=== PATIENT | male | born 1955 | race Caucasian/White ===

== ENCOUNTER → 2017-10-26 09:13 | Outpatient (CLI) | payer OTHER, SELFPAY ==
[2017-10-26 09:24] LABS: Bacteria Urine None Seen; RBC Urine None Seen (0-5/HPF); WBC Urine None Seen (0-5/HPF)
[2017-10-26 10:12] LABS: Appearance Urine UA CLEAR; Bilirubin Urine UA NEGATIVE (NEGATIVE); Color Urine UA YELLOW; Glucose Urine UA NEGATIVE (Normal); Ketones Urine UA NEGATIVE (NEGATIVE); Leukocyte Esterase Urine UA NEGATIVE (NEGATIVE); Nitrite Urine UA Negative (Negative); Occult Blood Urine UA NEGATIVE (Negative); Protein Urine UA NEGATIVE (Negative); Urobilinogen Urine UA 0.2 E.U./dL (0.2)
[2017-10-26 10:25] LABS: Culture Indicated Urine Cult Not Indicated; Urine Comments Microscopic Normal
[2017-10-26 10:41] LABS: Alanine Aminotransferase 35 IU/L (21-72); Albumin 4.5 g/dL (3.5-5.0); Albumin Globulin Ratio 1.7 (1.0-2.8); Alkaline Phosphatase 67 U/L (38-126); Aspartate Aminotransferase 34 IU/L (17-59); BUN Creatinine Ratio 16.4 (6-22); Bilirubin Total 1.4 mg/dL (0.2-1.3); Blood Urea Nitrogen 18 mg/dL (9-20); Calcium 9.2 mg/dL (8.4-10.2); Carbon Dioxide 30 mmol/L (22-32); Chloride 104 mmol/L (98-107); Cholesterol 81 mg/dL (140-199); Estimated Glomerular Filt Rate > 60.0 mL/min (>60); Globulin 2.6 g/dL (1.7-4.1); Glucose 117 mg/dL (80-110); HDL Cholesterol 23 mg/dL (40-60); HEMOLYSIS < 15 (0-50); LDL Cholesterol Calculated 35 mg/dL (<100); Lithium 0.7 mmol/L (0.6-1.2); Potassium 4.7 mmol/L (3.4-5.1); Sodium 142 mmol/L (137-145); Total Protein 7.1 g/dL (6.3-8.2); Triglycerides 116 mg/dL (35-150); Uric Acid 5.4 mg/dL (3.5-8.5)
[2017-10-26 11:06] LABS: TSH w/ Reflex to FT4 0.73 uIU/mL (0.47-4.68)
== END ==
PROVIDERS: PCP Internal Medicine Cardiovascular Disease; Visit Provider Internal Medicine
DX: E03.9 Hypothyroidism, unspecified (principal); E11.9 Type 2 diabetes mellitus without complications; E78.5 Hyperlipidemia, unspecified; F31.9 Bipolar disorder, unspecified; I10 Essential (primary) hypertension; M10.9 Gout, unspecified; R79.89 Other specified abnormal findings of blood chemistry
CPT/HCPCS: 36415; 80053; 80061; 80178; 81001; 83036; 84443; 84550

== ENCOUNTER → 2018-05-28 14:05 | Outpatient (CLI) | payer SELFPAY ==
[2018-05-28 16:36] LABS: Urine Drug scr, USCG NIDA See Separate Report
== END ==
DX: Z01.89 Encounter for other specified special examinations (principal)
CPT/HCPCS: 81099

== ENCOUNTER → 2018-08-24 13:35 | Outpatient (CLI) | payer OTHER, SELFPAY ==
--- NOTE | 2018-08-24 14:50 | PM.TREADMILL ---
Cardiac Stress Test Report Referral & Results Date Patient Seen: 08/24/18 Requesting provider: Marques Campbell Indication: Coronary disease Rest ECG: Unremarkable Procedure Note: Today following both written and verbal informed consent, the patient was exercised according to a standard Kristopher protocol. The patient exercised for a total of 12 minutes 4 seconds achieving a maximum heart rate of 172. Patient's maximum systolic blood pressure was 220. This was an estimated 12.8 MET's. There are no ST-T segment changes identified Normal heart rate response but slightly hypertensive in response to exercise (patient did hold his metoprolol prior to this test) Functional aerobic impairment way way off the scale estimate his functional capacity to be equal that of an active 40-year-old Impression: No evidence of ischemia Amazing exercise capacity Slightly hypertensive response to exercise while temporarily off metoprolol, clinical correlation suggested Please note: Actual ECG tracings can be found in the PACS system.
== END ==
PROVIDERS: Visit Provider Internal Medicine
DX: I25.10 Atherosclerotic heart disease of native coronary artery without angina pectoris (principal)
CPT/HCPCS: 93016; 93017; 93018

== ENCOUNTER → 2019-07-12 11:30 | Outpatient (CLI) | payer MEDICARE, SELFPAY ==
[2019-07-12 14:04] LABS: Hemoglobin A1C% w Est Avg Glu 5.1 % (4.0-6.0)
[2019-07-12 14:17] LABS: Lithium 1.1 mmol/L (0.6-1.2)
[2019-07-12 14:22] LABS: Alanine Aminotransferase 29 IU/L (<50); Albumin Globulin Ratio 1.7 (1.0-2.8); Alkaline Phosphatase 87 U/L (38-126); Aspartate Aminotransferase 38 IU/L (17-59); Bilirubin Total 0.9 mg/dL (0.2-1.3); Blood Urea Nitrogen 21 mg/dL (9-20); Calcium 10.2 mg/dL (8.4-10.2); Carbon Dioxide 28 mmol/L (22-32); Chloride 103 mmol/L (98-107); Estimated Glomerular Filt Rate > 60.0 mL/min (>60); Globulin 2.9 g/dL (1.7-4.1); Glucose 126 mg/dL (80-110); HEMOLYSIS < 15 (0-50); Potassium 4.8 mmol/L (3.4-5.1); Sodium 139 mmol/L (137-145); Total Protein 7.9 g/dL (6.3-8.2)
== END ==
PROVIDERS: PCP Internal Medicine; Referring Provider Internal Medicine; Visit Provider Internal Medicine
DX: R73.9 Hyperglycemia, unspecified (principal); F31.9 Bipolar disorder, unspecified; E78.5 Hyperlipidemia, unspecified
CPT/HCPCS: 36415; 80053; 80178; 83036

== ENCOUNTER → 2019-12-19 09:12 | Outpatient (CLI) | payer MEDICARE, SELFPAY ==
[2019-12-19 10:29] LABS: Add Manual Diff / Slide Review NO; Basophils Absolute Auto 0 /uL (0-100); Basophils Percent Auto 0.7 % (0-2); Eosinophils Absolute Auto 100 /uL (0-450); Eosinophils Percent Auto 1.9 % (2-4); Hemoglobin 14.7 g/dL (13.5-17.5); Lymphocytes Absolute Auto 1900 /uL (1100-4500); Lymphocytes Percent Auto 37.7 % (25-40); Mean Corpuscular Hemoglobin 33.7 PG (26-34); Mean Corpuscular Volume 96.3 fL (80-100); Monocytes Absolute Auto 200 /uL (0-900); Monocytes Percent Auto 4.6 % (3-14); Neutrophils Absolute Auto 2700 /uL (1500-7000); Neutrophils Percent Auto 55.1 % (50-75); Platelet Count 87 X10^3/uL (150-400); Red Blood Cell Count 4.36 X10^6/uL (4.5-5.9); Red Cell Distribution Width 13.6 % (11.6-14.8); White Blood Cell Count 4.9 X10^3/uL (4.5-11.0)
[2019-12-19 11:01] LABS: Alanine Aminotransferase 32 IU/L (<50); Albumin 4.5 g/dL (3.5-5.0); Albumin Globulin Ratio 1.7 (1.0-2.8); Alkaline Phosphatase 66 U/L (38-126); Aspartate Aminotransferase 41 IU/L (17-59); BUN Creatinine Ratio 14.4 (6-22); Bilirubin Total 1.1 mg/dL (0.2-1.3); Blood Urea Nitrogen 14 mg/dL (9-20); Calcium 9.4 mg/dL (8.4-10.2); Carbon Dioxide 29 mmol/L (22-32); Chloride 105 mmol/L (98-107); Estimated Glomerular Filt Rate > 60.0 mL/min (>60); Globulin 2.6 g/dL (1.7-4.1); Glucose 128 mg/dL (80-110); HEMOLYSIS < 15 (0-50); Potassium 4.5 mmol/L (3.4-5.1); Sodium 139 mmol/L (137-145); Total Protein 7.1 g/dL (6.3-8.2); Uric Acid 5.7 mg/dL (3.5-8.5)
[2019-12-19 11:41] LABS: Lithium 1.6 mmol/L (0.6-1.2)
== END ==
PROVIDERS: PCP Internal Medicine; Referring Provider Internal Medicine; Visit Provider Internal Medicine
DX: I25.10 Atherosclerotic heart disease of native coronary artery without angina pectoris (principal); E78.2 Mixed hyperlipidemia; I10 Essential (primary) hypertension
CPT/HCPCS: 36415; 80053; 80178; 84550; 85025

== ENCOUNTER → 2020-01-21 14:43 | Outpatient (CLI) | payer MEDICARE, SELFPAY ==
[2020-01-21 16:22] LABS: COVID19 -Nasal RAPID Negative (Negative)
== END ==
PROVIDERS: PCP Internal Medicine; Visit Provider Nurse Practitioner
DX: Z11.59 Encounter for screening for other viral diseases (principal)
CPT/HCPCS: 87635

== ENCOUNTER → 2020-02-15 10:11 | Outpatient (CLI) | payer MEDICARE, SELFPAY ==
[2020-02-15 11:00] LABS: Add Manual Diff / Slide Review NO; Basophils Absolute Auto 0 /uL (0-100); Basophils Percent Auto 0.6 % (0-2); Eosinophils Absolute Auto 100 /uL (0-450); Eosinophils Percent Auto 2.1 % (2-4); Hematocrit 43.7 % (41-53); Hemoglobin 15.2 g/dL (13.5-17.5); Lymphocytes Absolute Auto 1900 /uL (1100-4500); Mean Corpuscular HGB Conc 34.9 % (30-36); Mean Corpuscular Hemoglobin 32.7 PG (26-34); Mean Corpuscular Volume 93.6 fL (80-100); Monocytes Absolute Auto 200 /uL (0-900); Monocytes Percent Auto 4.2 % (3-14); Neutrophils Absolute Auto 2700 /uL (1500-7000); Neutrophils Percent Auto 55.1 % (50-75); Platelet Count 79 X10^3/uL (150-400); Red Blood Cell Count 4.66 X10^6/uL (4.5-5.9); Red Cell Distribution Width 13.5 % (11.6-14.8); White Blood Cell Count 4.9 X10^3/uL (4.5-11.0)
[2020-02-15 11:17] LABS: Alanine Aminotransferase 27 IU/L (<50); Albumin 4.4 g/dL (3.5-5.0); Albumin Globulin Ratio 1.6 (1.0-2.8); Alkaline Phosphatase 69 U/L (38-126); Aspartate Aminotransferase 27 IU/L (17-59); BUN Creatinine Ratio 12.5 (6-22); Bilirubin Total 0.8 mg/dL (0.2-1.3); Blood Urea Nitrogen 12 mg/dL (9-20); Calcium 9.4 mg/dL (8.4-10.2); Carbon Dioxide 27 mmol/L (22-32); Chloride 106 mmol/L (98-107); Cholesterol 109 mg/dL (140-199); Estimated Glomerular Filt Rate > 60.0 mL/min (>60); Globulin 2.7 g/dL (1.7-4.1); Glucose 139 mg/dL (80-110); HDL Cholesterol 28 mg/dL (40-60); HEMOLYSIS < 15 (0-50); LDL Cholesterol Calculated 50 mg/dL (<100); Potassium 4.3 mmol/L (3.4-5.1); Sodium 137 mmol/L (137-145); Total Protein 7.1 g/dL (6.3-8.2); Triglycerides 157 mg/dL (35-150)
[2020-02-15 11:23] LABS: Lithium 0.6 mmol/L (0.6-1.2)
[2020-02-15 11:55] LABS: TSH w/ Reflex to FT4 1.74 uIU/mL (0.47-4.68)
== END ==
PROVIDERS: PCP Internal Medicine; Referring Provider Internal Medicine; Visit Provider Internal Medicine
DX: I10 Essential (primary) hypertension (principal); E03.9 Hypothyroidism, unspecified; F31.9 Bipolar disorder, unspecified; T56.891A Toxic effect of other metals, accidental (unintentional), initial encounter
CPT/HCPCS: 36415; 80053; 80061; 80178; 84443; 85025

== ENCOUNTER → 2020-03-09 14:21 | Outpatient (CLI) | payer MEDICARE, SELFPAY ==
[2020-03-09] MEDS: COVID-19 VACC #1, MRNA(MOD) 100 MCG/0.5 ML VIAL IM (14:38)
== END ==
PROVIDERS: PCP Internal Medicine; Visit Provider Internal Medicine
DX: Z23 Encounter for immunization (principal)
CPT/HCPCS: 0011A; 91301

== ENCOUNTER → 2020-04-12 09:01 | Outpatient (CLI) | payer MEDICARE, SELFPAY ==
[2020-04-12] MEDS: COVID-19 VACC #2, MRNA(MOD) 100 MCG/0.5 ML VIAL IM (09:07)
== END ==
PROVIDERS: PCP Internal Medicine; Visit Provider Internal Medicine
DX: Z23 Encounter for immunization (principal)
CPT/HCPCS: 0012A; 91301

== ENCOUNTER → 2022-03-03 11:14 | Outpatient (CLI) | payer MEDICARE, SELFPAY ==
[2022-03-03 12:40] LABS: Alanine Aminotransferase 37 IU/L (<50); Albumin 4.7 g/dL (3.5-5.0); Albumin Globulin Ratio 1.7 (1.0-2.8); Alkaline Phosphatase 96 U/L (38-126); Aspartate Aminotransferase 32 IU/L (17-59); BUN Creatinine Ratio 21.3 (6-22); Bilirubin Total 0.9 mg/dL (0.2-1.3); Blood Urea Nitrogen 23 mg/dL (9-20); Carbon Dioxide 23 mmol/L (22-32); Chloride 102 mmol/L (98-107); Cholesterol 103 mg/dL (140-199); Estimated Glomerular Filt Rate > 60 mL/min (>60); Globulin 2.7 g/dL (1.7-4.1); Glucose 217 mg/dL (80-110); HDL Cholesterol 29 mg/dL (40-60); HEMOLYSIS < 15 (0-50); LDL Cholesterol Calculated 38 mg/dL (<100); Potassium 4.3 mmol/L (3.4-5.1); Sodium 137 mmol/L (137-145); Total Protein 7.4 g/dL (6.3-8.2); Triglycerides 178 mg/dL (35-150); Uric Acid 5.8 mg/dL (3.5-8.5)
[2022-03-03 13:12] LABS: Free T4, Direct Thyroxine 0.91 ng/dL (0.78-2.19)
[2022-03-03 13:25] LABS: Thyroid Stimulating Hormone 1.05 uIU/mL (0.47-4.68)
[2022-03-03 13:36] LABS: Lithium 1.6 mmol/L (0.6-1.2)
== END ==
PROVIDERS: PCP Family Medicine; Referring Provider Nurse Practitioner; Visit Provider Nurse Practitioner
DX: E78.5 Hyperlipidemia, unspecified (principal); I10 Essential (primary) hypertension; Z79.899 Other long term (current) drug therapy; M10.9 Gout, unspecified; E03.9 Hypothyroidism, unspecified
CPT/HCPCS: 36415; 80053; 80061; 80178; 84439; 84443; 84550

== ENCOUNTER → 2022-03-20 10:47 | Outpatient (CLI) | payer MEDICARE, SELFPAY ==
[2022-03-20 11:52] LABS: Add Manual Diff / Slide Review NO; Basophils Absolute Auto 0 /uL (0-100); Basophils Percent Auto 0.6 % (0-2); Eosinophils Absolute Auto 100 /uL (0-450); Eosinophils Percent Auto 1.5 % (2-4); Hematocrit 41.7 % (41-53); Hemoglobin 14.7 g/dL (13.5-17.5); Lymphocytes Absolute Auto 1800 /uL (1100-4500); Lymphocytes Percent Auto 36.6 % (25-40); Mean Corpuscular HGB Conc 35.1 % (30-36); Mean Corpuscular Hemoglobin 32.4 PG (26-34); Mean Corpuscular Volume 92.1 fL (80-100); Monocytes Absolute Auto 300 /uL (0-900); Monocytes Percent Auto 5.4 % (3-14); Neutrophils Absolute Auto 2700 /uL (1500-7000); Neutrophils Percent Auto 55.9 % (50-75); Platelet Count 69 X10^3/uL (150-400); Red Blood Cell Count 4.53 X10^6/uL (4.5-5.9); Red Cell Distribution Width 14.2 % (11.6-14.8); White Blood Cell Count 4.8 X10^3/uL (4.5-11.0)
[2022-03-20 11:59] LABS: Hemoglobin A1C% w Est Avg Glu 6.4 % (4.0-6.0)
[2022-03-20 12:04] LABS: Lithium 0.3 mmol/L (0.6-1.2)
[2022-03-20 12:22] LABS: Vitamin D 25 Hydroxy (D3) 34.7 ng/mL (30.0-100.0)
[2022-03-20 12:29] LABS: Creatinine Urine Random 123.8 mg/dL
[2022-03-20 13:11] LABS: Vitamin B12 371 pg/mL (239-931)
== END ==
PROVIDERS: PCP Family Medicine; Referring Provider Family Medicine; Visit Provider Family Medicine
DX: I10 Essential (primary) hypertension (principal); R73.09 Other abnormal glucose; Z79.899 Other long term (current) drug therapy; D69.6 Thrombocytopenia, unspecified; F31.9 Bipolar disorder, unspecified
CPT/HCPCS: 36415; 80178; 82043; 82306; 82570; 82607; 82746; 83036; 85025

== ENCOUNTER → 2022-11-20 09:11 | Outpatient (CLI) | payer MEDICARE, SELFPAY ==
[2022-11-20 09:52] LABS: Add Manual Diff / Slide Review NO; Basophils Absolute Auto 0 /uL (0-100); Basophils Percent Auto 0.8 % (0-2); Eosinophils Absolute Auto 100 /uL (0-450); Lymphocytes Absolute Auto 1900 /uL (1100-4500); Lymphocytes Percent Auto 47.1 % (25-40); Mean Corpuscular HGB Conc 35.9 % (30-36); Mean Corpuscular Hemoglobin 33.3 PG (26-34); Mean Corpuscular Volume 92.6 fL (80-100); Monocytes Absolute Auto 200 /uL (0-900); Neutrophils Absolute Auto 1800 /uL (1500-7000); Neutrophils Percent Auto 46.1 % (50-75); Platelet Count 72 X10^3/uL (150-400); Red Blood Cell Count 4.21 X10^6/uL (4.5-5.9); Red Cell Distribution Width 13.7 % (11.6-14.8)
[2022-11-20 10:01] LABS: Hemoglobin A1C% w Est Avg Glu 5.7 % (4.0-6.0)
[2022-11-20 10:15] LABS: Alanine Aminotransferase 41 IU/L (<50); Albumin 4.5 g/dL (3.5-5.0); Alkaline Phosphatase 73 U/L (38-126); Aspartate Aminotransferase 35 IU/L (17-59); Bilirubin Total 1.3 mg/dL (0.2-1.3); Blood Urea Nitrogen 20 mg/dL (9-20); Calcium 9.4 mg/dL (8.4-10.2); Carbon Dioxide 23 mmol/L (22-32); Chloride 106 mmol/L (98-107); Cholesterol 95 mg/dL (140-199); Estimated Glomerular Filt Rate > 60 mL/min (>60); Globulin 2.2 g/dL (1.7-4.1); Glucose 142 mg/dL (80-110); HDL Cholesterol 30 mg/dL (40-60); HEMOLYSIS < 15 (0-50); LDL Cholesterol Calculated 42 mg/dL (<100); Potassium 4.7 mmol/L (3.4-5.1); Sodium 137 mmol/L (137-145); Total Protein 6.7 g/dL (6.3-8.2); Triglycerides 115 mg/dL (35-150); Uric Acid 5.3 mg/dL (3.5-8.5)
[2022-11-20 10:16] LABS: Lithium 0.7 mmol/L (0.6-1.2)
[2022-11-20 10:45] LABS: TSH w/ Reflex to FT4 0.77 uIU/mL (0.47-4.68)
[2022-11-20 11:07] LABS: Hep C Virus Ab w/Reflex Quant NEGATIVE s/c (NEGATIVE)
== END ==
PROVIDERS: PCP Family Medicine; Referring Provider Nurse Practitioner Family; Visit Provider Nurse Practitioner Family
DX: D69.6 Thrombocytopenia, unspecified (principal); R73.9 Hyperglycemia, unspecified; E78.5 Hyperlipidemia, unspecified; Z51.81 Encounter for therapeutic drug level monitoring; M10.09 Idiopathic gout, multiple sites; E03.9 Hypothyroidism, unspecified
CPT/HCPCS: 36415; 80053; 80061; 80178; 83036; 84443; 84550; 85025; 86803

== ENCOUNTER → 2023-03-09 07:55 | Outpatient (CLI) | payer MEDICARE, SELFPAY ==
--- NOTE | 2023-03-09 08:21 | DI.ECHO.S_ITS ---
[facility] +---------+ : : [address] : : : : [id number] : : : : Phone: [phone]+ Echocardiogram Report + + :Name: ISHMAEL ROBISON Study Date: 03/09/2023 Height: 70 in : :[facility] ReadingLocation: Weight: 235 lb : : Gender: Male BSA: 2.2 m2 : :: 1955 Age: 67 yrs BP: 164/83 mmHg: :Reason For Study: Murmur : :Ordering Physician: Karina : :Lorna Performed By: Mian Phillips : :Referring: KARINA THOMAS W : + + Interpretation Summary Normal left ventricle size with ejection fraction 60-65%. No significant valvular abnormality. Procedure: A two-dimensional transthoracic echocardiogram with color flow and Doppler was performed. The study quality was technically adequate. Comparison is made with the echocardiogram of 01/23/2011. The patient was in normal sinus rhythm during the exam. The heart rate ranged between 44-53 bpm during the study. Left Ventricle: The left ventricle is normal in size and wall thickness. The ejection fraction is estimated to be 60-65%. There are no focal wall motion abnormalities. Right Ventricle: The right ventricle is normal in size and function. Atria: The left atrial size is normal. The right atrium is normal in size. Mitral Valve: The mitral valve is normal in structure and function. There is no mitral valve stenosis. There is trace mitral regurgitation. Aortic Valve: The aortic valve is trileaflet. There is no aortic valve stenosis. No aortic regurgitation is present. Tricuspid Valve: The tricuspid valve is normal in structure and function. There is no tricuspid stenosis. There is trace tricuspid regurgitation. The right ventricular systolic pressure is estimated to be at least 33 mmHg based on an estimated right atrial pressure of 3 mm Hg. Pulmonic Valve: The pulmonic valve is normal in structure and function. There is no pulmonic valvular stenosis. There is no pulmonic valvular regurgitation. Great Vessels: The aortic root is normal size. The dimensions of the ascending aorta are normal. The inferior vena cava appeared normal. Pericardium/ Pleura There is no pericardial effusion. There is no pleural effusion. MMode/2D Measurements & Calculations LVIDd: 5.4 cm LVOT diam: 2.2 cm LVIDs: 3.4 cm Ao root diam: 3.1 cm FS: 37.2 % asc Aorta Diam: 3.2 cm IVSd: 1.2 cm Ao Arch Diam (Prox Trans): 3.3 cm LVPWd: 1.0 cm LV taylor. diameter/BSA (cm/m^2): 2.4 LV sys. diameter/BSA (cm/m^2): 1.5 LA A2 area: 22.4 cm2 RA long axis: 5.4 cm LA A4 area: 30.2 cm2 RA area: 21.3 cm2 LA length (vol): 6.7 cm RA vol: 71.1 ml LA vol: 86.0 ml RA : 31.8 ml/m2 LA vol index: 38.5 ml/m2 IVC diam: 1.7 cm RVD1 (basal): 4.1 cm RVD2 (mid): 3.7 cm TAPSE: 3.0 cm Doppler Measurements & Calculations Ao V2 max: 169.8 cm/sec LVOT Max Mp: 150.8 cm/sec Ao V2 mean: 124.6 cm/sec LV V1 max P.1 mmHg Ao max P.5 mmHg LV V1 VTI: 37.8 cm Ao mean P.7 mmHg CHARITY(I,D): 3.0 cm2 Ao V2 VTI: 46.9 cm CHARITY(V,D): 3.3 cm2 sev ratio: 0.80 CHARITY indexed to BSA (cm^2/m^2): 1.3 MV E max mp: 70.4 cm/sec TR max mp: 266.5 cm/sec MV A max mp: 78.5 cm/sec TR max P.4 mmHg MV E/A: 0.90 PA pr(Accel): 31.0 mmHg Med Peak E' Mp: 6.4 cm/sec E/E' med: 10.9 Lat Peak E' Mp: 12.6 cm/sec E/E' lat: 5.6 E/e' average: 8.3 MV dec time: 0.30 sec SV(LVOT): 139.6 ml Electronically signed by: Eileen Bran on Reading Physician:03/09/2023 05:02 PM
== END ==
LOC: ECHO 07:57
PROVIDERS: PCP Nurse Practitioner Family; Referring Provider Nurse Practitioner; Visit Provider Nurse Practitioner
DX: R01.1 Cardiac murmur, unspecified (principal)
CPT/HCPCS: 93306

== ENCOUNTER → 2023-05-19 10:15 | Outpatient (CLI) | payer MEDICARE, SELFPAY ==
[2023-05-19 10:57] LABS: Add Manual Diff / Slide Review NO; Basophils Absolute Auto 0 /uL (0-100); Basophils Percent Auto 0.8 % (0-2); Eosinophils Absolute Auto 0 /uL (0-450); Eosinophils Percent Auto 0.9 % (2-4); Hematocrit 40.5 % (41-53); Hemoglobin 14.5 g/dL (13.5-17.5); Lymphocytes Absolute Auto 1700 /uL (1100-4500); Mean Corpuscular HGB Conc 35.9 % (30-36); Mean Corpuscular Hemoglobin 32.9 PG (26-34); Mean Corpuscular Volume 91.7 fL (80-100); Monocytes Absolute Auto 200 /uL (0-900); Monocytes Percent Auto 4.5 % (3-14); Neutrophils Absolute Auto 2200 /uL (1500-7000); Neutrophils Percent Auto 52.8 % (50-75); Platelet Count 78 X10^3/uL (150-400); Red Blood Cell Count 4.42 X10^6/uL (4.5-5.9); Red Cell Distribution Width 13.7 % (11.6-14.8); White Blood Cell Count 4.1 X10^3/uL (4.5-11.0)
[2023-05-19 11:15] LABS: Lithium 0.5 mmol/L (0.6-1.2)
[2023-05-19 11:26] LABS: Alanine Aminotransferase 36 IU/L (<50); Albumin 4.7 g/dL (3.5-5.0); Albumin Globulin Ratio 1.9 (1.0-2.8); Alkaline Phosphatase 69 U/L (38-126); Aspartate Aminotransferase 35 IU/L (17-59); BUN Creatinine Ratio 21.2 (6-22); Bilirubin Total 1.1 mg/dL (0.2-1.3); Blood Urea Nitrogen 21 mg/dL (9-20); Calcium 9.6 mg/dL (8.4-10.2); Carbon Dioxide 25 mmol/L (22-32); Chloride 106 mmol/L (98-107); Estimated Glomerular Filt Rate > 60 mL/min (>60); Globulin 2.5 g/dL (1.7-4.1); Glucose 145 mg/dL (80-110); HEMOLYSIS < 15 (0-50); Potassium 4.5 mmol/L (3.4-5.1); Sodium 138 mmol/L (137-145); Total Protein 7.2 g/dL (6.3-8.2); Uric Acid 8.1 mg/dL (3.5-8.5)
[2023-05-19 19:46] LABS: Hemoglobin A1C% w Est Avg Glu 5.4 % (4.0-6.0)
[2023-05-20 11:11] LABS: PSA, Total 0.6 ng/mL (0.0-4.0)
== END ==
PROVIDERS: PCP Nurse Practitioner Family; Referring Provider Nurse Practitioner Family; Visit Provider Nurse Practitioner Family
DX: D69.6 Thrombocytopenia, unspecified (principal); Z51.81 Encounter for therapeutic drug level monitoring; M10.9 Gout, unspecified; R35.1 Nocturia; E78.1 Pure hyperglyceridemia
CPT/HCPCS: 36415; 80053; 80178; 83036; 84153; 84154; 84550; 85025

== ENCOUNTER → 2023-12-10 09:31 | Outpatient (CLI) | payer MEDICARE, SELFPAY ==
[2023-12-10 10:26] LABS: Add Manual Diff / Slide Review NO; Basophils Absolute Auto 0 /uL (0-100); Basophils Percent Auto 0.5 % (0-2); Eosinophils Absolute Auto 0 /uL (0-450); Eosinophils Percent Auto 1.2 % (2-4); Hematocrit 43.4 % (41-53); Hemoglobin 15.5 g/dL (13.5-17.5); Lymphocytes Absolute Auto 1800 /uL (1100-4500); Lymphocytes Percent Auto 49.4 % (25-40); Mean Corpuscular HGB Conc 35.7 % (30-36); Mean Corpuscular Hemoglobin 33.1 PG (26-34); Mean Corpuscular Volume 92.8 fL (80-100); Monocytes Absolute Auto 100 /uL (0-900); Monocytes Percent Auto 3.6 % (3-14); Neutrophils Absolute Auto 1600 /uL (1500-7000); Neutrophils Percent Auto 45.3 % (50-75); Platelet Count 78 X10^3/uL (150-400); Red Blood Cell Count 4.68 X10^6/uL (4.5-5.9); Red Cell Distribution Width 13.5 % (11.6-14.8); White Blood Cell Count 3.6 X10^3/uL (4.5-11.0)
[2023-12-10 11:21] LABS: Lithium 0.4 mmol/L (0.6-1.2)
[2023-12-10 11:25] LABS: Alanine Aminotransferase 28 IU/L (<50); Albumin 4.9 g/dL (3.5-5.0); Alkaline Phosphatase 68 U/L (38-126); Aspartate Aminotransferase 30 IU/L (17-59); BUN Creatinine Ratio 18.9 (6-22); Bilirubin Total 1.1 mg/dL (0.2-1.3); Blood Urea Nitrogen 18 mg/dL (9-20); Calcium 9.4 mg/dL (8.4-10.2); Carbon Dioxide 23 mmol/L (22-32); Chloride 104 mmol/L (98-107); Cholesterol 183 mg/dL (140-199); Estimated Glomerular Filt Rate > 60 mL/min (>60); Globulin 2.5 g/dL (1.7-4.1); Glucose 148 mg/dL (80-110); HDL Cholesterol 38 mg/dL (40-60); HEMOLYSIS < 15 (0-50); LDL Cholesterol Calculated 126 mg/dL (<100); Potassium 4.6 mmol/L (3.4-5.1); Sodium 136 mmol/L (137-145); Total Protein 7.4 g/dL (6.3-8.2); Triglycerides 97 mg/dL (35-150); Uric Acid 9.2 mg/dL (3.5-8.5)
[2023-12-10 11:53] LABS: Thyroid Stimulating Hormone 0.809 uIU/mL (0.47-4.68)
== END ==
DX: E78.5 Hyperlipidemia, unspecified (principal); M10.9 Gout, unspecified; D69.6 Thrombocytopenia, unspecified; E03.9 Hypothyroidism, unspecified; F31.9 Bipolar disorder, unspecified
CPT/HCPCS: 36415; 80053; 80061; 80178; 84443; 84550; 85025

== ENCOUNTER → 2024-04-29 09:53 | Outpatient (CLI) | payer MEDICARE, SELFPAY ==
--- NOTE | 2024-04-29 09:58 | DI.CT.S_ITS ---
PROCEDURE: CT CHEST ABD PEL W CON INDICATIONS: SMALL B-CELL LYMPHOMA EXTRANODAL SITE TECHNIQUE: After the administration of intravenous contrast, 5 mm thick sections acquired from the lung apices to the symphysis. 5 mm coronal and sagittal reformats were performed, with additional 7 mm MIP reformats through the lungs. For radiation dose reduction, the following was used: automated exposure control, adjustment of mA and/or kV according to patient size. COMPARISON: None. FINDINGS: Image quality: Excellent. CHEST: Lower Neck: No enlarged lymph nodes. Thyroid: No thyroid nodules which require sonographic follow up, per consensus guidelines. Axillae: No enlarged lymph nodes. Chest Wall: Unremarkable. Lungs and Pleura: No pneumothorax or pleural effusions. No consolidation or suspicious nodules. Heart: Heart size is normal. No pericardial effusion. Thoracic Vessels: The aorta and pulmonary arteries demonstrate normal size. Mediastinum and Korina: No enlarged lymph nodes. Esophagus: No wall thickening. No hiatal hernia. ABDOMEN: Liver: No solid mass. The liver is normal in size. Gallbladder: No radiopaque gallstones or wall thickening. Biliary ducts: No biliary dilation. Pancreas: No ductal dilation. Spleen: Size is enlarged in craniocaudad length at 17.8 cm. Adrenal Glands: No adrenal nodules. Kidneys and Ureters: No hydronephrosis. No solid mass. No complex renal cystic lesion which requires follow up. Stomach and Bowel: Normal colonic caliber, without significant wall thickening. Note is made of mild prominence of the mural thickness of the gastric cardia, but this is in the state of nondistention. Peritoneum: No abnormal intraperitoneal fluid. No free air. Ventral Wall: No significant ventral hernia. Abdominal Nodes: No retroperitoneal or mesenteric adenopathy by size criteria. Vessels: Aorta and inferior vena cava are normal in size. PELVIS: Pelvic Organs: Unremarkable. Bladder: No bladder wall thickening, accounting for underdistention. Pelvic Nodes: No enlarged lymph nodes. Miscellaneous: No inguinal hernias are seen. Bones: No aggressive osseous abnormality. IMPRESSION: Splenomegaly, no adenopathy seen. No marrow space lesion identified. Mild prominence of the gastric cardia wall thickness, but in the setting of nondistention of the gastric lumen. Therefore this is a nonspecific appearance and often is secondary to apposition of normal gastric folds. Dictated by: Taj Phelps M.D. on 04/29/2024 at 15:25 Approved by: Taj Phelps M.D. on 04/29/2024 at 15:31
[2024-04-29 10:58] LABS: Estimated Glomerular Filt Rate > 60 mL/min (>60)
== END ==
PROVIDERS: Radiology Diagnostic Radiology; Referring Provider Internal Medicine; Visit Provider Internal Medicine
DX: Z13.89 Encounter for screening for other disorder (principal); C83.09 Small cell B-cell lymphoma, extranodal and solid organ sites; R16.1 Splenomegaly, not elsewhere classified
CPT/HCPCS: 36415; 71260; 74177; 82565; Q9967

== ENCOUNTER 2024-06-03 23:01 | Observation (INO) | payer MEDICARE, SELFPAY ==
[2024-06-03 23:12] VITALS: BP 116/56; PULSE 46; O2SAT 97; BMI 34.9
[2024-06-03 23:17] VITALS: PULSE 46; O2SAT 97
--- NOTE | 2024-06-03 23:23 | DI.RAD.S_ITS ---
PROCEDURE: XR CHEST 1V INDICATIONS: chest pain TECHNIQUE: One view of the chest was acquired. COMPARISON: None. FINDINGS: Surgical changes and devices: None. Lungs and pleura: Lungs are clear. No pleural effusions or pneumothorax. Mediastinum: Mediastinal contours appear normal. Heart size is enlarged. Bones and chest wall: No suspicious bony lesions. Overlying soft tissues appear unremarkable. IMPRESSION: No acute cardiopulmonary abnormality is seen. Dictated by: Ayaz Blanco M.D. on 06/03/2024 at 23:53 Approved by: Ayaz Blanco M.D. on 06/03/2024 at 23:53
--- NOTE | 2024-06-03 23:23 | DI.CT.S_ITS ---
PROCEDURE: CT HEAD/BRAIN WO CON INDICATIONS: Fall with head injury, syncope TECHNIQUE: Noncontrast 4.5 mm thick angled axial sections acquired from the foramen magnum to the vertex, with coronal and sagittal reformats. For radiation dose reduction, the following was used: automated exposure control, adjustment of mA and/or kV according to patient size. COMPARISON: None. FINDINGS: Image quality: Diagnostic. CSF spaces: Basal cisterns are patent. No extra-axial fluid collections. The ventricles are symmetric in size and shape. Brain: No intracranial bleeds or mass effect. There is cerebral volume loss, with resultant ventricular and sulcal prominence. There are periventricular and deep white matter chronic small vessel ischemic changes. There is intracranial internal carotid artery atherosclerosis. Skull and face: Calvarium and visualized facial bones appear intact, without suspicious lesions. Sinuses: Air-fluid levels in the maxillary sinuses. IMPRESSION: No acute intracranial pathology. Acute maxillary sinusitis. Dictated by: Ayaz Blanco M.D. on 06/03/2024 at 23:52 Approved by: Ayaz Blanco M.D. on 06/03/2024 at 23:53
--- NOTE | 2024-06-03 23:23 | DI.CT.S_ITS ---
PROCEDURE: CT ANGIO HEAD AND NECK INDICATIONS: Fall with head injury, syncope TECHNIQUE: After the administration of intravenous contrast, 1 mm thick sections acquired from the aortic arch through the [place]. 3-dimensional jgxjnca-hpxkegyop-curbcmzizu (MIP) and/or volume rendering reformats were acquired of the central intracranial vasculature and neck separately. For radiation dose reduction, the following was used: automated exposure control, adjustment of mA and/or kV according to patient size. COMPARISON: None. FINDINGS: Image quality: Diagnostic. HEAD ANGIOGRAPHY Anterior circulation: ICAs: Normal and symmetric ACAs: Normal and symmetric MCAs: Normal and symmetric AComm: No aneurysm Venous sinuses: patent Posterior circulation: Dominance: Equal Vertebral arteries: No stenosis or occlusion. No aneurysm. Basilar artery: Unremarkable PComms: No aneurysm professional engineer: Unremarkable NECK ANGIOGRAPHY Aortic arch and subclavian arteries: Normal flow, no aneurysm. CCAs: No stenosis, occlusion, or aneurysm. ICA origins (by NASCET criteria): No hemodynamically significant narrowing. ICAs: No stenosis, occlusion or aneurysm. ECAs: Origins are patent. Vertebral arteries: Unremarkable Soft tissues: No significant mass, aneurysm, or lymphadenopathy Lung apices: No pneumothorax Bones: No acute or suspicious abnormality. IMPRESSION: No significant intracranial arterial abnormality is seen. No significant abnormality is seen within the arteries of the neck. Any quantitative measurements of stenosis were performed using NASCET criteria. Dictated by: Ayaz Blanco M.D. on 06/03/2024 at 23:54 Approved by: Ayaz Blanco M.D. on 06/03/2024 at 23:55
--- NOTE | 2024-06-03 23:24 | EKG_ITS ---
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
--- NOTE | 2024-06-03 23:29 | ED.SYNCOPE ---
HPI - Syncope General Chief Complaint: Syncope Stated Complaint: poss syncopal episode Time Seen by Provider: 06/03/24 23:08 Source: family Mode of arrival: Ambulatory Limitations: no limitations History of Present Illness HPI narrative: 69-year-old gentleman history of CAD x1 stent high blood pressure dyslipidemia smokes marijuana was celebrating his birthday earlier today had a few beers and some wine with dinner golf the earlier and was feeling fine when the noticed she heard a noise downstairs were was watching TV earlier. She went to investigate the cause of the noise and found her face down in the hallway face down. When she attempted to re-orient him he was still confused and this is when she then brought him to be evaluated. also noticed he was incontinent of urine and pt stated had a bm in his pants. 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 But did notice that his heart rate has been in the 40s and 50s recently and was unsure if this was contributing to his fall tonight. Other than what is stated 14 point review of system is negative. Related Data Home Medications Medication Instructions Recorded Confirmed NITROGLYCERIN (#NITROSTAT) 0.4 mg sublingual PRN ##0 01/16/11 05/17/24 metoprolol succinate 25 mg 25 mg PO QDAY ##0 12/15/11 05/17/24 tablet,extended release 24 hr (Toprol XL) ASPIRIN (Aspir-Low) 81 mg PO QDAY ##0 05/05/12 05/17/24 primidone 50 mg tablet 50 mg PO ONCE 05/17/24 05/17/24 sildenafil 100 mg tablet (Viagra) 100 mg PO DAILY PRN 05/17/24 05/17/24 valsartan 320 mg tablet 320 mg PO DAILY 05/17/24 05/17/24 Previous Rx's Medication Instructions Recorded levothyroxine 100 mcg tablet 100 mcg PO DAILY #90 tabs 08/04/17 allopurinol 300 mg tablet 300 mg PO QDAY #90 tabs 12/01/17 amlodipine 5 mg tablet 5 mg PO DAILY #30 tabs 03/25/18 lithium carbonate 300 mg capsule 300 mg PO BID #60 caps 03/29/18 atorvastatin 40 mg tablet 40 mg PO HS #90 tabs 05/25/18 valsartan 160 mg tablet (Diovan) 160 mg PO BID #180 tabs 06/23/18 Allergies Allergy/AdvReac Type Severity Reaction Status Date / Time No Known Drug Allergies Allergy Verified 05/17/24 07:54 Review of Systems Review of Systems ROS Unobtainable: All systems reviewed & are unremarkable except as noted in HPI and below Patient History Medical History (Updated 06/04/24 @ 03:03 by Yuriy Hannah, DO) Chronic ITP (idiopathic thrombocytopenic purpura) Thrombocytopenia (2011) Bipolar disorder (~1979) Diabetes mellitus (2010) Hyperlipidemia Hypertension CAD (coronary artery disease) (2010) Surgical History (Updated 10/23/17 @ 09:42 by Caro Carlos) History of colonoscopy (2006) History of coronary artery stent placement (2010) History of angioplasty Family History (Updated 10/23/17 @ 09:44 by Caro Carlos) Other CAD (coronary artery disease) Social History marital status: number of children: 3 household members: spouse lives independently: Yes alcohol intake: current (2 servings daily) substance use type: does not use tobacco type: vaping Alcohol type: wine Exam Narrative Exam Narrative: GENERAL: [69] year old patient appears stated age. Well-developed patient, in mild distress. HEAD: Atraumatic. Normocephalic. EYES: Pupils equal round and reactive. Extraocular motions intact. No scleral icterus. No injection or drainage. ENT: Nose without bleeding, purulent drainage. Throat without erythema, tonsillar hypertrophy or exudate. Airway patent. NECK: Trachea midline. Non tender CARDIOVASCULAR: Regular rate and rhythm without murmurs, gallops, or rubs. RESPIRATORY: Clear to auscultation. Breath sounds equal bilaterally. No wheezes, rales, or rhonchi. GASTROINTESTINAL: Abdomen soft, non-tender, nondistended. EXTREMITIES: No edema or joint tenderness. BACK: Nontender without deformity or crepitance. No flank tenderness. NEURO: AOx3. SKIN: No rash or erythema of visible areas Initial Vital Signs Initial Vital Signs: Vital Signs Pulse Rate 46 L 06/03/24 23:12 Blood Pressure 116/56 L 06/03/24 23:12 Pulse Oximetry 97 06/03/24 23:12 Oxygen Delivery Method Room Air 06/03/24 23:12 Course Orders Ordered: ED Orders 06/03/24 23:23 CT angio head and neck Stat CT head/brain wo con Stat XR chest 1V Stat Complete Blood Count AUTO DIFF Stat Comprehensive Metabolic Panel Stat Lipase Stat Magnesium Stat NT-proBNP (BNP-Adult 18+) Stat PTT Partial Thromboplastin Josiah Stat Prothrombin Time INR Stat Troponin & CK Cardiac Panel Stat EKG-12 Lead Stat 06/04/24 02:00 TSH [Thyroid Stimulating Hormone] Stat 06/04/24 02:05 Troponin I Stat Acetaminophen (Acetaminophen 325 Mg Tablet) 650 mg PO Q6H PRN PRN Reason: Fever/Mild Pain (1-3) Heparin Sodium (Porcine) (Heparin 5,000 Unit/Ml Vial) 5,000 unit SUBCUT BID OTONIEL Sodium Chloride (Normal Saline 0.9%) 1,000 mls @ 100 mls/hr IV CONT OTONIEL Naloxone HCl (Naloxone 0.4 Mg/Ml Vial) 0.2 mg IV Q2MIN PRN PRN Reason: Opiate Reversal Ondansetron HCl (Ondansetron 4 Mg/2 Ml Inj) 4 mg IV Q8HR PRN PRN Reason: Nausea And Vomiting Discontinued Medications Aspirin (Aspirin 81 Mg Chew Tab) 324 mg PO NOW ONE Stop: 06/03/24 23:24 Last Admin: 06/03/24 23:55 Dose: Not Given Documented By: BROOKLYN Lactated Ringer's (Lactated Ringers) 500 mls @ 1,000 mls/hr IV BOLUS ONE Stop: 06/04/24 02:29 Last Infusion: 06/04/24 02:51 Dose: Infused Documented By: Admin: 06/04/24 02:18 Dose: 1,000 mls/hr Documented By: BROOKLYN Vital Signs Vital signs: Vital Signs - 8 hr 06/03/24 23:12 06/03/24 23:17 06/03/24 23:30 Pulse Rate 46 L 46 L Respiratory Rate Blood Pressure 116/56 L 114/56 L Pulse Oximetry 97 97 Oxygen Delivery Method Room Air 06/03/24 23:30 06/04/24 00:00 Pulse Rate 48 L 49 L Respiratory Rate 19 16 Blood Pressure Pulse Oximetry 95 96 Oxygen Delivery Method MDM - Syncope Lab Data 06/03/24 23:23 06/03/24 23:23 Labs: Lab Results 06/03/24 06/04/24 Range/Units 23:23 02:05 WBC 6.1 (4.5-11.0) X10^3/uL RBC 3.74 L (4.5-5.9) X10^6/uL Hgb 12.4 L (13.5-17.5) g/dL Hct 34.9 L (41-53) % MCV 93.2 (80-100) fL MCH 33.1 (26-34) PG MCHC 35.5 (30-36) % RDW 14.3 (11.6-14.8) % Plt Count 76 L (150-400) X10^3/uL Neut % (Auto) 29.8 L (50-75) % Lymph % (Auto) 63.2 H (25-40) % [place] % (Auto) 4.8 (3-14) % Eos % (Auto) 1.7 L (2-4) % Baso % (Auto) 0.5 (0-2) % Neut # (Auto) 1800 (3548-6689) /uL Lymph # (Auto) 3900 (1687-9806) /uL [place] # (Auto) 300 (0-900) /uL Eos # (Auto) 100 (0-450) /uL Baso # (Auto) 0 (0-100) /uL PT 12.2 (9.4-12.5) SECONDS INR 1.1 (0.9-1.3) APTT 26 (25.1-36.5) SECONDS Sodium 138 (137-145) mmol/L Potassium 4.1 (3.4-5.1) mmol/L Chloride 103 (98-107) mmol/L Carbon Dioxide 23 (22-32) mmol/L BUN 27 H (9-20) mg/dL Creatinine 1.35 H (0.66-1.25) mg/dL Estimated GFR 56 L (>60) mL/min BUN/Creatinine Ratio 20.0 (6-22) Glucose 150 H (70-99) mg/dL Calcium 8.8 (8.4-10.2) mg/dL Magnesium 2.3 (1.6-2.3) mg/dL Total Bilirubin 0.8 (0.2-1.3) mg/dL AST 41 (17-59) IU/L ALT 36 (<50) IU/L Alkaline Phosphatase 59 (38-126) U/L Total Creatine Kinase 235 H (55-170) U/L Troponin I < 0.012 < 0.012 (0.01-0.034) ng/mL NT-Pro-B Natriuret Pep 203 H (<125) pg/mL Total Protein 6.7 (6.3-8.2) g/dL Albumin 4.8 (3.5-5.0) g/dL Globulin 1.9 (1.7-4.1) g/dL Albumin/Globulin Ratio 2.5 (1.0-2.8) Lipase 263 (23-300) U/L ECG Data Interpretation: Sinus Rubén HR 46 [place] 222 QRS [address]-t wave change No previous EKG to compare against MDM Narrative Medical decision making narrative: All lab work chest x-ray CT scan vital signs nurse triage note medication list in all previous visits all reviewed. Patient has GCS of 15 nonfocal neuro exam here on arrival. Patient given lactated Ringer's 1 L bolus. Differential diagnosis includes CVA, mass,,tumor, hemorrhage, symptomatic bradycardia, seizure, hypoglycemia, dehydration, orthostatic hypotension, STEMI NSTEMI PE. Case discussed with who has graciously accept patient for inpatient admission. Discharge Plan Departure Patient Disposition: Admitted as Observation Clinical Impression: Syncope Qualifiers: Syncope type: unspecified Qualified Code(s): R55 - Syncope and collapse Admit Date/Time: 06/04/24 02:07 Admit Provider: Fabian Yoo
[2024-06-03 23:30] VITALS: BP 114/56; PULSE 48; RESP 19; O2SAT 95
[2024-06-03 23:30] LABS: Add Manual Diff / Slide Review NO; Basophils Absolute Auto 0 /uL (0-100); Basophils Percent Auto 0.5 % (0-2); Eosinophils Absolute Auto 100 /uL (0-450); Eosinophils Percent Auto 1.7 % (2-4); Hematocrit 34.9 % (41-53); Hemoglobin 12.4 g/dL (13.5-17.5); Lymphocytes Absolute Auto 3900 /uL (1100-4500); Lymphocytes Percent Auto 63.2 % (25-40); Mean Corpuscular HGB Conc 35.5 % (30-36); Mean Corpuscular Hemoglobin 33.1 PG (26-34); Mean Corpuscular Volume 93.2 fL (80-100); Monocytes Absolute Auto 300 /uL (0-900); Monocytes Percent Auto 4.8 % (3-14); Neutrophils Absolute Auto 1800 /uL (1500-7000); Neutrophils Percent Auto 29.8 % (50-75); Platelet Count 76 X10^3/uL (150-400); Red Blood Cell Count 3.74 X10^6/uL (4.5-5.9); Red Cell Distribution Width 14.3 % (11.6-14.8); White Blood Cell Count 6.1 X10^3/uL (4.5-11.0)
[2024-06-03 23:37] LABS: INR 1.1 (0.9-1.3); Prothrombin Time 12.2 SECONDS (9.4-12.5)
[2024-06-03 23:40] LABS: PTT Partial Thromboplastin Tim 26 SECONDS (25.1-36.5)
[2024-06-03 23:41] LABS: Alanine Aminotransferase 36 IU/L (<50); Albumin 4.8 g/dL (3.5-5.0); Albumin Globulin Ratio 2.5 (1.0-2.8); Alkaline Phosphatase 59 U/L (38-126); Aspartate Aminotransferase 41 IU/L (17-59); Bilirubin Total 0.8 mg/dL (0.2-1.3); Blood Urea Nitrogen 27 mg/dL (9-20); Calcium 8.8 mg/dL (8.4-10.2); Carbon Dioxide 23 mmol/L (22-32); Chloride 103 mmol/L (98-107); Creatine Kinase 235 U/L (55-170); Estimated Glomerular Filt Rate 56 mL/min (>60); Globulin 1.9 g/dL (1.7-4.1); Glucose 150 mg/dL (70-99); HEMOLYSIS < 15 (0-50); Lipase 263 U/L (23-300); Magnesium 2.3 mg/dL (1.6-2.3); Potassium 4.1 mmol/L (3.4-5.1); Sodium 138 mmol/L (137-145); Total Protein 6.7 g/dL (6.3-8.2)
[2024-06-03 23:53] LABS: NT-proBNP (BNP-Adult 18+) 203 pg/mL (<125); Troponin I < 0.012 ng/mL (0.01-0.034)
[2024-06-04] VITALS (9 sets, daily range): BP systolic 112–132; BP diastolic 46–54; PULSE 47–53; RESP 13–18; TEMP 36–36.3; O2SAT 91–97; BMI 34.0
[2024-06-04] MEDS: LACTATED RINGERS 500 ML 1000 ML IV (02:18)
[2024-06-04 02:40] LABS: Troponin I < 0.012 ng/mL (0.01-0.034)
[2024-06-04 02:59] LABS: Thyroid Stimulating Hormone 0.625 uIU/mL (0.47-4.68)
--- NOTE | 2024-06-04 03:08 | P.HP_ITS ---
History of Present Illness History of Present Illness Chief complaint: poss syncopal episode Narrative: 69-year-old male with past medical history of coronary disease status post stents, alcohol abuse, marijuana use, hypertension and dyslipidemia presents with syncope. Per the patient's report, today was his birthday and he had a few beers and some wine with dinner. The patient states that normally he does drink 3-4 alcoholic beverage per day. The patient denies any prior history of seizure. The patient's noticed that she heard a noise downstairs where her was watching TV. The patient's immediately went down and found that her 's dog in the hallway. The patient did try to attempt to reorient the patient but the patient be somewhat confused no syncope. The patient also had some urinary incontinence. Again the fall was unwitnessed. Of note the patient was seen by his substation operator transforming 2 days ago and was noted to be stable without any medication changes. Otherwise there is no report of any recent fever, chills, nausea, vomiting, diarrhea, chest pain or shortness of breath. The patient states she does not remember much but the event but he currently does not have any chest pain prior to the event for now. In our emergency room, the patient was hemodynamically stable. Labs shows a negative opponent with EKG that did not show any sign ischemia. However the patient does have bradycardia with her 3 AV block. Repeated troponin was also negative. Creatinine is 1 point. There is no sign of infection with negative chest x-ray and MVC of 6.1. CK level is not mildly elevated at 200. TSH also checked and was normal. CT of the head and neck with contrast was negative for any acute pathology. The patient was not hypoxic and was not having any respiratory distress. Our ER physician wanted to admit the patient for observation overnight with hydration and monitor patient's hemodynamic and signs of arrhythmia. [facility] Medical History (Updated 06/04/24 @ 03:03 by Yuriy Hannah DO) Chronic ITP (idiopathic thrombocytopenic purpura) Thrombocytopenia (2011) Bipolar disorder (~1979) Diabetes mellitus (2010) Hyperlipidemia Hypertension CAD (coronary artery disease) (2010) Surgical History (Updated 10/23/17 @ 09:42 by Caro Carlos) History of colonoscopy (2006) History of coronary artery stent placement (2010) History of angioplasty Family History (Updated 10/23/17 @ 09:44 by Caro Carlos) Other CAD (coronary artery disease) Social History marital status: number of children: 3 household members: spouse lives independently: Yes alcohol intake: current (2 servings daily) substance use type: does not use Meds Home Medications and Allergies Home Medications Medication Instructions Recorded Confirmed Type NITROGLYCERIN (#NITROSTAT) 0.4 mg sublingual PRN ##0 01/16/11 05/17/24 History metoprolol succinate 25 mg 25 mg PO QDAY ##0 12/15/11 05/17/24 History tablet,extended release 24 hr (Toprol XL) ASPIRIN (Aspir-Low) 81 mg PO QDAY ##0 05/05/12 05/17/24 History levothyroxine 100 mcg tablet 100 mcg PO DAILY #90 tabs 08/04/17 05/17/24 Rx allopurinol 300 mg tablet 300 mg PO QDAY #90 tabs 12/01/17 05/17/24 Rx amlodipine 5 mg tablet 5 mg PO DAILY #30 tabs 03/25/18 05/17/24 Rx lithium carbonate 300 mg capsule 300 mg PO BID #60 caps 03/29/18 05/17/24 Rx atorvastatin 40 mg tablet 40 mg PO HS #90 tabs 05/25/18 05/17/24 Rx valsartan 160 mg tablet (Diovan) 160 mg PO BID #180 tabs 06/23/18 05/17/24 Rx primidone 50 mg tablet 50 mg PO ONCE 05/17/24 05/17/24 History sildenafil 100 mg tablet (Viagra) 100 mg PO DAILY PRN 05/17/24 05/17/24 History valsartan 320 mg tablet 320 mg PO DAILY 05/17/24 05/17/24 History Allergies Allergy/AdvReac Type Severity Reaction Status Date / Time No Known Drug Allergies Allergy Verified 05/17/24 07:54 Review of Systems Review of Systems ROS: Yes unobtainable due to mental condition Exam Vital Signs (past 8 hours): - 06/03/24 23:12 06/03/24 23:17 06/03/24 23:30 Pulse Rate 46 L 46 L Respiratory Rate Blood Pressure 116/56 L 114/56 L Pulse Oximetry 97 97 Oxygen Delivery Method Room Air 06/03/24 23:30 06/04/24 00:00 06/04/24 00:30 Pulse Rate 48 L 49 L 47 L Respiratory Rate 19 16 13 Blood Pressure Pulse Oximetry 95 96 92 Oxygen Delivery Method 06/04/24 01:00 06/04/24 01:30 06/04/24 02:00 Pulse Rate 47 L 52 L 48 L Respiratory Rate 13 15 14 Blood Pressure Pulse Oximetry 91 95 94 Oxygen Delivery Method 06/04/24 02:30 06/04/24 03:00 Pulse Rate 50 L 48 L Respiratory Rate 14 14 Blood Pressure 112/54 L Pulse Oximetry 95 95 Oxygen Delivery Method Oxygen Delivery Method Room Air Narrative Exam Narrative: Physical Exam: GENERAL: The patient is not in any acute distressed. Awake and alert. HEENT: Nonicteric sclerae, PERRLA, EOMI. Oropharynx clear. Moist mucous membranes. Conjunctivae appear well perfused. HEART: Regular rate and rhythm without murmurs. No lower extremities edema. LUNGS: Clear to auscultation bilaterally. No wheezing, crackles or rhonchi ABDOMEN: Soft, positive bowel sounds, nontender. SKIN: No rash, no excessive bruising, petechiae, or purpura. NEUROLOGIC: AxO x 3. Cranial nerves II-XII intact without motor/sensory deficit. Objective Labs 06/03/24 23:23 06/03/24 23:23 Labs: Laboratory Results - last 24 hr 06/03/24 06/04/24 23:23 02:05 WBC 6.1 RBC 3.74 L Hgb 12.4 L Hct 34.9 L MCV 93.2 MCH 33.1 MCHC 35.5 RDW 14.3 Plt Count 76 L Neut % (Auto) 29.8 L Lymph % (Auto) 63.2 H [place] % (Auto) 4.8 Eos % (Auto) 1.7 L Baso % (Auto) 0.5 Neut # (Auto) 1800 Lymph # (Auto) 3900 [place] # (Auto) 300 Eos # (Auto) 100 Baso # (Auto) 0 PT 12.2 INR 1.1 APTT 26 Sodium 138 Potassium 4.1 Chloride 103 Carbon Dioxide 23 BUN 27 H Creatinine 1.35 H Estimated GFR 56 L BUN/Creatinine Ratio 20.0 Glucose 150 H Calcium 8.8 Magnesium 2.3 Total Bilirubin 0.8 AST 41 ALT 36 Alkaline Phosphatase 59 Total Creatine Kinase 235 H Troponin I < 0.012 < 0.012 NT-Pro-B Natriuret Pep 203 H Total Protein 6.7 Albumin 4.8 Globulin 1.9 Albumin/Globulin Ratio 2.5 Lipase 263 TSH 0.625 Assessment & Plan Assessment & Plan narrative: 69-year-old male with past medical history of coronary disease status post stents, alcohol abuse, marijuana use, hypertension and dyslipidemia presents with syncope. Per the patient's report, today was his birthday and he had a few beers and some wine with dinner. The patient states that normally he does drink 3-4 alcoholic beverage per day. The patient denies any prior history of seizure. The patient's noticed that she heard a noise downstairs where her was watching TV. The patient's immediately went down and found that her 's dog in the hallway. The patient did try to attempt to reorient the patient but the patient be somewhat confused no syncope. The patient also had some urinary incontinence. Again the fall was unwitnessed. Of note the patient was seen by his substation operator transforming 2 days ago and was noted to be stable without any medication changes. Otherwise there is no report of any recent fever, chills, nausea, vomiting, diarrhea, chest pain or shortness of breath. The patient states she does not remember much but the event but he currently does not have any chest pain prior to the event for now. In our emergency room, the patient was hemodynamically stable. Labs shows a negative opponent with EKG that did not show any sign ischemia. However the patient does have bradycardia with her 3 AV block. Repeated troponin was also negative. Creatinine is 1 point. There is no sign of infection with negative chest x-ray and MVC of 6.1. CK level is not mildly elevated at 200. TSH also checked and was normal. CT of the head and neck with contrast was negative for any acute pathology. The patient was not hypoxic and was not having any respiratory distress. Our ER physician wanted to admit the patient for observation overnight with hydration and monitor patient's hemodynamic and signs of arrhythmia. Syncope. Admit the patient to medical telemetry under observation. No clear etiology at this time. However the patient did have a brief moment of confusion per the 's report post syncope and also urinary incontinence. CT head and neck with contrast are negative. Troponin x 2 are negative with a EKG that does not show any sign of acute ischemia. However there is sinus bradycardia with first-degree AV block. TSH however was normal. Will continue to monitor patient closely with PT OT in the morning. Continue IV fluid hydration. Seizure precautions. Will off any CT angio of the chest for now as patient did just have CT angio of the head and neck. However if the patient does become hypoxic consider getting a CT angio chest in the morning. To rule out PE the patient again denies any chest pain. The patient also does not have any tachycardia or hypoxemia. [place]. A 1.3. Baseline 0.9. Continue IV fluid as this is likely from dehydration. Alcohol abuse. Patient did have more than 4-5 drinks last night. Will monitor for any alcohol withdrawal CIWA protocol. Also seizure precaution as above. Coronary disease status post that. Again patient denies any chest pain. Resume home cardiac medication. Hypertension. Monitor blood pressure resume home medication cortically. Hyperlipidemia. Resume home statin. DVT prophylaxis SCD due to observational status. CODE STATUS full code per the patient's request. Disposition likely home in 1 to 2 days. - As the provider of this telehealth evaluation, requested by the patient's evaluating physician, I attest that I introduced myself to the patient, provided my credentials and determined that telemedicine via a real-time, 2 way interactive audio and video platform is an appropriate and effective means of providing this service. - I reviewed the patient's chart and had a discussion with the member of the patient's treatment team. - The patient and I mutually agreed with continuation of this evaluation via telemedicine. The patient consented for the telemedicine evaluation. - This virtual encounter was taken place from [place]. The encounter was approximately 35 minutes. The nurse was present during the entire time of the encounter and was able to move the stethoscope in appropriate directions. The patient was evaluated at [facility]. Time-Based Coding :: [TOTAL MINUTES] spent with patient and on the chart (including review of chart, obtaining history, exam, reviewing outside data, placing orders, documenting exam and treatment plan, and counseling patient) on [DATE].
[2024-06-04] MEDS: SODIUM CHLORIDE 0.9% 1,000 ML 100 ML IV (03:20)
[2024-06-04] MEDS: ACETAMINOPHEN 325 MG TABLET 650 MG PO (03:22)
[2024-06-04] MEDS: THIAMINE 100 MG TABLET PO ×2 (04:09→08:54)
[2024-06-04] MEDS: MULTIVITAMIN 1 TABLET 1 TAB PO (08:54)
[2024-06-04] MEDS: HEPARIN 5,000 UNIT/ML VIAL 5000 UNIT SUBCUT (08:54)
[2024-06-04] MEDS: FOLIC ACID 1 MG TABLET PO (08:54)
--- NOTE | 2024-06-04 10:50 | PT.IIE ---
Surgical History (Last Updated 10/23/17 @ 09:42 by Caro Carlos) History of angioplasty History of colonoscopy (2006) History of coronary artery stent placement (2010) Medical History (Last Updated 10/23/17 @ 09:42 by Caro Carlos) Bipolar disorder (~1980) CAD (coronary artery disease) (2010) Chronic ITP (idiopathic thrombocytopenic purpura) Diabetes mellitus (2010) Hyperlipidemia Hypertension Thrombocytopenia (2011) Physical Therapy Inpatient Evaluation/Re-Eval M1 PT/OT-IP Prior Functional Status Start: 06/04/24 11:48 Freq: NEEDED Status: Active Protocol: Document 06/04/24 10:50 AB (Rec: 06/04/24 12:08 AB Desktop) Medical Review Prior Functional Status Medical History Reviewed Yes Communication able to make needs known Mobility and Gait pt stated that he is independent with all mobilities and ambulation without AD Social History Household Members spouse Living Arrangements House Number of Floors (Floors) Two Floors Number of Stairs To Enter/Railing? no steps to enter the house ~ 25 steps B rails to go to 2nd floor bedroom Home Environment Standard Height Toilet,Walk in Shower Employment Status Retired M2 PT-IP Current Condition Start: 06/04/24 11:48 Freq: NEEDED Status: Active Protocol: Document 06/04/24 10:50 AB (Rec: 06/04/24 12:08 AB Desktop) Physical Therapy Current Condition Current Condition Evaluation Date 06/04/24 Treatment Diagnosis syncope; difficulty in walking Onset Date 06/04/24 M3 PT-IP Subjective Start: 06/04/24 11:48 Freq: NEEDED Status: Active Protocol: Document 06/04/24 10:50 AB (Rec: 06/04/24 12:08 AB Desktop) Subjective Physical Therapy Visit Type Type Initial Evaluation Visit Start Time 10:50 Visit Stop Time 11:25 Notes pt seen for split visits: 1050 am to 1105 and 1110 to 1125 Number of TONG HOOKER Visits 0 Physical Therapy Visit Comments Patient Comments agreeable to do PT Therapy Pain Assessment Pain When Pain Assessed At Rest Pain Present Pain Present Pain Reported Location Face Intensity 5 Scale Used Numeric (0 - 10) Pain Management Techniques Distraction Neck Intensity 5 Scale Used Numeric (0 - 10) Pain Management Techniques Distraction M4 PT-IP Mobility and Gait Start: 06/04/24 11:48 Freq: NEEDED Status: Active Protocol: Document 06/04/24 10:50 AB (Rec: 06/04/24 12:08 AB Desktop) PT-Bed Mobility Assessment Supine to Sit Supine to Sit Independent Sit to Supine Sit to Supine Independent PT-Transfer Assessment Sit to and From Stand Sit to and from Stand Independent Equipment Transfer Assistive Device None Orthotic/Prosthetic Devices or Brace: No Transfers Transfer Destination Toilet Transfer Technique ambulated Transfer Ability Level of Assist Independent,Standby Assistance Comments Mobility Comments pt in bed and agreeable to do PT. obtained PLOF and home set up. BP checked: 135/65 O2 sat: 96% and NH: 51-68. hospitalist came in to see pt. checked back on pt after hospitalist finished with pt. spouse in room. pt completed supine to sit independent. able to sit on EOB I. BP: 147/66 NH: 54 O2 sat: 98%. no c/o dizziness/ lightheadedness. sit to stand mod I. BP checked: 146/ 59 NH 58 O2 sat: 98 pt requested to use the toilet and ambulated to the toilet without AD SBA. pt completed toileting needs without AD. agreed to walk in the hallway and completed ~ 200 ft without AD SBA to Mod I. no LOB. pt completed up/down steps using B rails SBA. pt ambulated back to his room and back to bed mod I. pt and spouse without further concerns. no further PT intervention needed at this time. call light and table placed next to pt. Gait Assessment Gait Gait Assistance Required: Independent,Standby Assistance Distance (Feet) 200 Able to Maintain Weight Bearing Status Yes During Gait Assistive Devices Assistive Device None Orthotic/Prosthetic Devices or Brace: No Gait Deviations General Gait Pattern Within Normal Limits Stair Climbing Assessment Evaluation Level of Assist On Stairs Standby Assistance Devices Stair Climbing Assistive Devices Left Railing,Right Railing Technique/Endurance Stair Climbing Direction Ascend and Descend Stair Climbing Technique Step Over Step Number of Steps Climbed 3 Query Text: Stair Climbing Set # Repetitions (reps) 2 PT-Balance Assessment Sitting Balance and Reactions Static Sitting Balance Ability Normal Dynamic Sitting Balance Ability Normal Standing Balance and Reactions Static Standing Balance Ability Normal Dynamic Standing Balance Ability Good Device Used without AD M5 PT-IP Objective Assessments Start: 06/04/24 11:48 Freq: NEEDED Status: Active Protocol: Document 06/04/24 10:50 AB (Rec: 06/04/24 12:08 AB Desktop) Orientation Orientation/Cognition Level of Alertness Alert Orientation Name,Age,Birthday,Month,Date, Year,Day of Week,Place, Situation Language Function Ability No Deficits Noted Safety Awareness Understands Safety Issues Memory Description No Deficits Noted Gross Range of Motion Lower Extremity ROM Assessment Within Functional Limits Strength Lower Extremity Strength Assessment Within Functional Limits Coordination Assessment Gross Coordination Gross Coordination WNL Muscle Tone Muscle Tone WNL Yes M6 PT-IP Treatment Start: 06/04/24 11:48 Freq: NEEDED Status: Active Protocol: Document 06/04/24 10:50 AB (Rec: 06/04/24 12:08 AB Desktop) Physical Therapy Treatment Education Education Provided Safety M7 PT-IP Assessment and Plan Start: 06/04/24 11:48 Freq: NEEDED Status: Active Protocol: Document 06/04/24 10:50 AB (Rec: 06/04/24 12:08 AB Desktop) PT Summary Assessment and Plan Potential Rehabilitation Potential Fair Status of Condition at Evaluation Stable Summary Impairments Pain,Strength,Balance,Gait Assessment Summary pt is a 69 y/o M who is admitted for syncope. pt is SBA to mod I with mobility and ambulation without AD. pt plans to go home and spouse to assist if needed. No further PT intervention needed at this time. Frequency of Treatment Frequency Of Treatment Discharge Treatment Plan Physical Therapy Treatment Plan Bed Mobility Training,Transfer Training,Gait Training, Therapeutic Exercise,Balance Retraining,Post Op Education, Discharge Planning,Hot or Cold Pack,Neuromuscular Re-ed, Coordination Retraining,Manual Therapy Recommendations To Nursing Amount of Assist Needed Independent Discharge Recommendations PT Discharge Recommendations Home Transportation Needs at Discharge Private Vehicle - PT assist 1
[2024-06-04 11:35] LABS: Lithium 0.3 mmol/L (0.6-1.2)
[2024-06-04 11:36] LABS: BUN Creatinine Ratio 25.8 (6-22); Blood Urea Nitrogen 24 mg/dL (9-20); Calcium 8.9 mg/dL (8.4-10.2); Carbon Dioxide 25 mmol/L (22-32); Chloride 105 mmol/L (98-107); Estimated Glomerular Filt Rate > 60 mL/min (>60); Glucose 149 mg/dL (70-99); HEMOLYSIS < 15 (0-50); Potassium 4.6 mmol/L (3.4-5.1); Sodium 137 mmol/L (137-145)
--- NOTE | 2024-06-04 12:02 | CM.IDA ---
Initial DCP Assessment Note Patient is 69 y/o male who presents to due to concern for syncopal episode and GLF post ETOH and marijuana use. Patient's PCP is Dr. Mian Jain, Patient has Medicare [facility] Patient has upcoming appt with Dr. Jain on 06/23/24. Patient has hx of Bipolar Affective Disorder, CAD, Type 2 Diabetes Mellitus, Hyperlipidemia, acquired hypothyroidism. REGIONAL ENGINEER enters room to meet with patient, present in room is patient's spouse. Patient presents as A/Ox4. Patient resides in [place] with spouse, patient is independent at baseline and drives. REGIONAL ENGINEER asks about patient's substance use, he states that he does not typically use marijuana. Patient endorses that he typically drinks 3 large glasses of wine a day, it is reported that [place] and experienced syncopal episode when he got home. Patient denies interest in [facility] resources, patient's spouse states she will be monitoring patient's ETOH use. Patient denies any DCP needs, patient endorses plan to follow up with PCP at upcoming appt in a few weeks. Patient was evaluated by PT and there are no reported concerns. Plan: patient to d/c upon medical clearance to home with spouse, patient to f/u with outpatient providers. LISA Bolton Discharge Planning/Care Management CM Discharge Assessment Start: 06/04/24 11:58 Freq: Status: Active Protocol: Document 06/04/24 11:58 LN (Rec: 06/04/24 12:01 LN Desktop) Discharge Planning Assessment Assigned Surface Water Technician LISA Das DPOA/Assigned Designee Name Radha Negron/Spouse Contact Information Advance Directives? Yes Advance Directives on File No History Provided By Patient,Significant Other Prior Living Arrangements House Household Members spouse Type of transportation used prior to Drives own vehicle admit Independent with ADL's Yes Is patient alert and oriented? Yes Referrals Initiated None needed
[2024-06-04 12:26] LABS: Add Manual Diff / Slide Review NO; Basophils Absolute Auto 0 /uL (0-100); Basophils Percent Auto 0.2 % (0-2); Eosinophils Absolute Auto 0 /uL (0-450); Eosinophils Percent Auto 0.8 % (2-4); Hematocrit 34.1 % (41-53); Hemoglobin 12.2 g/dL (13.5-17.5); Lymphocytes Absolute Auto 1300 /uL (1100-4500); Lymphocytes Percent Auto 30.8 % (25-40); Mean Corpuscular HGB Conc 35.8 % (30-36); Mean Corpuscular Hemoglobin 33.1 PG (26-34); Mean Corpuscular Volume 92.6 fL (80-100); Monocytes Absolute Auto 200 /uL (0-900); Neutrophils Absolute Auto 2600 /uL (1500-7000); Neutrophils Percent Auto 63.2 % (50-75); Platelet Count 62 X10^3/uL (150-400); Red Blood Cell Count 3.68 X10^6/uL (4.5-5.9); Red Cell Distribution Width 14.2 % (11.6-14.8); White Blood Cell Count 4.1 X10^3/uL (4.5-11.0)
--- NOTE | 2024-06-04 12:49 | P.DS_ITS ---
History of Present Illness History of Present Illness Chief complaint: poss syncopal episode Narrative: Per H&P: 69-year-old male with past medical history of coronary disease status post stents, alcohol abuse, marijuana use, hypertension and dyslipidemia presents with syncope. Per the patient's report, today was his birthday and he had a few beers and some wine with dinner. The patient states that normally he does drink 3-4 alcoholic beverage per day. The patient denies any prior history of seizure. The patient's noticed that she heard a noise downstairs where her was watching TV. The patient's immediately went down and found that her 's dog in the hallway. The patient did try to attempt to reorient the patient but the patient be somewhat confused no syncope. The patient also had some urinary incontinence. Again the fall was unwitnessed. Of note the patient was seen by his gas leak tester 2 days ago and was noted to be stable without any medication changes. Otherwise there is no report of any recent fever, chills, nausea, vomiting, diarrhea, chest pain or shortness of breath. The patient states she does not remember much but the event but he currently does not have any chest pain prior to the event for now. In our emergency room, the patient was hemodynamically stable. Labs shows a negative opponent with EKG that did not show any sign ischemia. However the patient does have bradycardia with her 3 AV block. Repeated troponin was also negative. Creatinine is 1 point. There is no sign of infection with negative chest x-ray and MVC of 6.1. CK level is not mildly elevated at 200. TSH also checked and was normal. CT of the head and neck with contrast was negative for any acute pathology. The patient was not hypoxic and was not having any respiratory distress. Our ER physician wanted to admit the patient for observation overnight with hydration and monitor patient's hemodynamic and signs of arrhythmia. Discharge Providers Provider Date of admission: 06/04/24 02:07 Discharge Date: 06/04/24 Primary care physician: Mian Jain MD Consults: 06/04/24 02:14 Consult to Occupational Therapy Evaluate & Treat Comment: Physician Instructions: Evaluate and treat Consult to Physical Therapy Evaluate & Treat Comment: Physician Instructions: Evaluate and Treat 06/04/24 03:42 Consult to Dietitian, Adult Routine Comment: planned weight loss of 10 pounds Reason For Exam: MNA score = 11 Discharge provider: Lavonne Mak MD Summary Hospital Course Discharge Diagnosis: 1. Syncope with right nasal injury/laceration status post repair 2. Sinus bradycardia 3. Alcohol dependence without withdrawal 4. Coronary artery disease status post stent 5. [place] 6. Hypertension 7. Hyperlipidemia 8. Bipolar disorder 9. Insomnia Hospital Course: Patient was admitted after his found him face down on the floor following hearing a thump last evening. Yesterday was his birthday. He drank 3 beers while golfing, had 2 glasses of wine in the evening, vaped marijuana and then 8 marijuana gummies. He subsequently suffered a syncopal event. He did feel dizzy prior but was unable to sit down or when other way prevent harm before the syncope occurred. He reports having episodes per week of feeling lightheaded with position change. He is chronically bradycardic. On an outpatient basis his beta-sindhu has been getting weaned down. However, his symptoms have not abated. He was brought to the emergency department after his syncopal event. In the ER his laceration was repaired. CTA was performed which revealed no evidence of stroke or vascular occlusion. Overnight, he had no recurrence of symptoms. He remained on telemetry which revealed sinus bradycardia in the low 50s. No hypotension. He was evaluated by Physical therapy with no mobility concerns. Due to his reported symptoms of presyncope on an average of 2 times weekly, as well as his facial injury on the evening of admission, his metoprolol has been discontinued. He is encouraged to monitor his heart rate and blood pressures and keep a log to bring in at his follow-up appointment with his PCP as well as to report back to his gas leak tester, Dr. Lynn. He was advised that his symptoms are exacerbated by his alcohol and marijuana use. He is encouraged to cut down but he is pre contemplative. He feels he is able to drink higher amounts of alcohol due to his physical size. When I attempted to further discuss this with him, he inverted his eyes and would not make any additional eye contact with me or engage in conversation. He did complain about insomnia. We discussed sleep hygiene as well as alcohols impact on sleep. Again he was not interested in discussing his alcohol use. Discussed possibility of underlying undiagnosed obstructive sleep apnea given his body habitus. Encouraged starting with good sleep hygiene. He is discharged in stable condition. He should have his PCP reassess his sutures at his follow-up appointment to determine when those can safely be removed. Status at Discharge Cognitive/behavioral status at discharge: at baseline, oriented Functional status at discharge: independent ambulation Overall status at discharge: patient is back to baseline Time Spent with Patient Time spent: Less than 30 minutes Exam Vital Signs (past 8 hours): - 06/04/24 08:00 06/04/24 08:00 Temperature 97.3 F L Pulse Rate 53 L Respiratory Rate 16 Blood Pressure 122/51 L Pulse Oximetry 97 Oxygen Delivery Method Room Air Oxygen Flow Rate 0 Oxygen Delivery Method Room Air Oxygen Flow Rate 0 Narrative Exam Narrative: GEN: Pleasant middle-aged male, Alert and oriented x 3, NAD HEENT:NC, Face symmetric, bruising noted to right maxillary area and forehead, swelling and erythema noted to the right nares, sutures in place along the right nostril CHEST: Respiratory excursions symmetric, CTAB CV: RRR, no M/R/G ABD: Soft, NT/ND, obese, BT present in all 4 quadrants, body habitus limits exam EXTR: warm, well perfused, no C/C/E SKIN: warm and dry, no rash NEURO: Alert and oriented x 3, nonfocal Objective Labs 06/04/24 11:09 06/04/24 11:09 Labs: Laboratory Results - last 24 hr 06/03/24 06/04/24 06/04/24 23:23 02:05 11:09 WBC 6.1 4.1 L RBC 3.74 L 3.68 L Hgb 12.4 L 12.2 L Hct 34.9 L 34.1 L MCV 93.2 92.6 MCH 33.1 33.1 MCHC 35.5 35.8 RDW 14.3 14.2 Plt Count 76 L 62 L Neut % (Auto) 29.8 L 63.2 D Lymph % (Auto) 63.2 H 30.8 D [place] % (Auto) 4.8 5.0 Eos % (Auto) 1.7 L 0.8 L Baso % (Auto) 0.5 0.2 Neut # (Auto) 1800 2600 Lymph # (Auto) 3900 1300 [place] # (Auto) 300 200 Eos # (Auto) 100 0 Baso # (Auto) 0 0 PT 12.2 INR 1.1 APTT 26 Sodium 138 137 Potassium 4.1 4.6 Chloride 103 105 Carbon Dioxide 23 25 BUN 27 H 24 H Creatinine 1.35 H 0.93 Estimated GFR 56 L > 60 BUN/Creatinine Ratio 20.0 25.8 H Glucose 150 H 149 H Calcium 8.8 8.9 Magnesium 2.3 Total Bilirubin 0.8 AST 41 ALT 36 Alkaline Phosphatase 59 Total Creatine Kinase 235 H Troponin I < 0.012 < 0.012 NT-Pro-B Natriuret Pep 203 H Total Protein 6.7 Albumin 4.8 Globulin 1.9 Albumin/Globulin Ratio 2.5 Lipase 263 TSH 0.625 Kemp 0.3 L PFSH Medical History (Updated 06/04/24 @ 03:03 by uYriy Hannah, DO) Chronic ITP (idiopathic thrombocytopenic purpura) Thrombocytopenia (2011) Bipolar disorder (~1979) Diabetes mellitus (2010) Hyperlipidemia Hypertension CAD (coronary artery disease) (2010) Surgical History (Updated 10/23/17 @ 09:42 by Caro Carlos) History of colonoscopy (2006) History of coronary artery stent placement (2010) History of angioplasty Family History (Updated 10/23/17 @ 09:44 by Caro Carlos) Other CAD (coronary artery disease) Social History marital status: number of children: 3 household members: spouse lives independently: Yes Smoking Status: Never smoker alcohol intake: current substance use type: does not use Discharge Plan Discharge Plan Patient Disposition: Home Provider Discharge Comment: You were admitted for a syncopal episode (fainting), likely due to a combination of low heart rate (both your natural baseline and effect of metoprolol) and low blood pressure (from alcohol, marijuana and your blood pressure medications). Your head CT showed no brain injury or evidence of stroke. Please STOP the metoprolol as your heart rate here in the hospital has been running in the 40s and 50s and you have reported feeling dizzy upon standing from a sitting position a couple times per week. Please notify Dr. Lynn's office as well as your PCP. Please continue to check your BP and Heart rate and record them. Bring them in to your next appointment with your PCP/Dr. Lynn. I strongly advise that you cut down on your alcohol use to 2 beverages per day, particularly in light of the high doses of high blood pressure medication you require, your marijuana use, underlying bipolar disorder, and sleep disorder. Consider seeing a sleep specialist for further evaluation of your sleep difficulties. Discharge orders & Medications Prescriptions: Continued valsartan 320 mg tablet 320 mg PO DAILY primidone 50 mg tablet 50 mg PO DAILY sildenafil [Viagra] 100 mg tablet 100 mg PO DAILY PRN (Reason: Erectile Dysfunction) Rx Instructions: administer 30 minutes to 4 hours before activity NITROGLYCERIN (#NITROSTAT) 0.4 mg Sublingual PRN PRN (Reason: Chest Pain) Qty: 0 ASPIRIN (Aspir-Low) 81 mg PO QDAY Qty: 0 levothyroxine 100 mcg tablet 100 mcg PO DAILY Qty: 90 0RF allopurinol 300 mg tablet 300 mg PO QDAY Qty: 90 0RF amlodipine 5 mg tablet 5 mg PO DAILY Qty: 30 2RF atorvastatin 40 mg tablet 40 mg PO DAILY Rx Instructions: takes in a.m. lithium carbonate 300 mg capsule 300 mg PO DAILY Discontinued metoprolol succinate [Toprol XL] 25 MG tablet extended release 24 hr 25 mg PO QDAY Qty: 0 Follow up/Referrals: Mian Jain MD [Primary Care Provider] - Discharge Health Status Multidrug resistant organism: No MDRO Diet/Activity/Treatments Diet: Diet as Tolerated and Regular Activity: As tolerated, Make slow position changes to reduce risk of orthostatic hypotension (fainting) Oxygen: N/A Visit Report/Discharge Packet Instructions: DI for Syncope in Adults (Fainting), Insomnia, Alcohol Use Disorder, DI for Orthostatic Hypotension, How to Prevent Falls, DI for Abrasion Stand Alone Forms: Patient Portal/API, Stroke Signs & Symptoms Discharge Data Primary Care Provider: Mian Jain Attending Provider: Fabian Yoo Admit Date/Time: 06/04/24 02:07
[2024-06-04 13:00] LABS: NT-proBNP (BNP-Adult 18+) 146 pg/mL (<125)
--- NOTE | 2024-06-04 14:19 | PC.NURSE ---
Discharge: Seen by MD and given d/c instructions, was seen by PT who told MD pt was stable and could go home from their point. Pt is tolerating diet w/out problems. Vds w/out diff. Has been up in the room with this food writer and staff and has been steady on his feet, no use of assistive devices. No c/p. Tele SB to the 40's but asymptomatic. No dizziness or problems. Reviewed d/c packet. Questions answered. Pt d/c to home via auto w/spouse.
== END 2024-06-04 12:45 | disposition home or self-care (01) ==
LOC: ED 23:08 → AC 06-04 02:09
PROVIDERS: Family Medicine; Admitting Provider Internal Medicine; Emergency Provider Family Medicine; PCP Family Medicine; Referring Provider Family Medicine; Visit Provider Internal Medicine
DX: R55 Syncope and collapse (principal); R32 Unspecified urinary incontinence; I10 Essential (primary) hypertension; S01.21XA Laceration without foreign body of nose, initial encounter; E86.0 Dehydration; E78.5 Hyperlipidemia, unspecified; W18.30XA Fall on same level, unspecified, initial encounter; Y92.009 Unspecified place in unspecified non-institutional (private) residence as the place of occurrence of the external cause; F10.10 Alcohol abuse, uncomplicated; R00.1 Bradycardia, unspecified; N17.9 Acute kidney failure, unspecified; F31.9 Bipolar disorder, unspecified; G47.00 Insomnia, unspecified; F12.90 Cannabis use, unspecified, uncomplicated
CPT/HCPCS: 36415; 70450; 70496; 70498; 71045; 80048; 80053; 80178; 82550; 83690; 83735; 83880; 84443; 84484; 85025; 85610; 85730; 93005; 93010; 96360; 96372; 97161; 97530; 99284; G0378; J1644; Q9967

== ENCOUNTER → 2024-06-17 08:35 | Outpatient (CLI) | payer MEDICARE, SELFPAY ==
[2024-06-04 03:32] VITALS: BMI 34.0
[2024-06-17 10:10] LABS: Hematocrit 38.7 % (41-53); Hemoglobin 13.8 g/dL (13.5-17.5); Mean Corpuscular HGB Conc 35.5 % (30-36); Mean Corpuscular Hemoglobin 32.9 PG (26-34); Mean Corpuscular Volume 92.8 fL (80-100); Platelet Count 79 X10^3/uL (150-400); Red Blood Cell Count 4.17 X10^6/uL (4.5-5.9); Red Cell Distribution Width 14.2 % (11.6-14.8)
[2024-06-17 10:15] LABS: Creatinine Urine Random 134.11 mg/dL
[2024-06-17 10:31] LABS: Microalbumin Urine Random < 0.6 mg/dL (0-1.6)
[2024-06-17 10:35] LABS: INR 1.1 (0.9-1.3); Prothrombin Time 12.4 SECONDS (9.4-12.5)
[2024-06-17 10:40] LABS: Hemoglobin A1C% w Est Avg Glu 5.9 % (4.0-6.0)
[2024-06-17 10:42] LABS: Lithium 0.4 mmol/L (0.6-1.2)
[2024-06-17 10:52] LABS: Alanine Aminotransferase 41 IU/L (<50); Albumin Globulin Ratio 2.2 (1.0-2.8); Alkaline Phosphatase 75 U/L (38-126); Aspartate Aminotransferase 42 IU/L (17-59); BUN Creatinine Ratio 21.5 (6-22); Bilirubin Total 1.1 mg/dL (0.2-1.3); Blood Urea Nitrogen 28 mg/dL (9-20); Calcium 9.5 mg/dL (8.4-10.2); Carbon Dioxide 25 mmol/L (22-32); Chloride 103 mmol/L (98-107); Cholesterol 91 mg/dL (140-199); Estimated Glomerular Filt Rate 59 mL/min (>60); Globulin 2.3 g/dL (1.7-4.1); Glucose 147 mg/dL (70-99); HDL Cholesterol 25 mg/dL (40-60); HEMOLYSIS < 15 (0-50); LDL Cholesterol Calculated 40 mg/dL (<100); Potassium 4.5 mmol/L (3.4-5.1); Sodium 139 mmol/L (137-145); Total Protein 7.3 g/dL (6.3-8.2); Triglycerides 130 mg/dL (35-150)
[2024-06-17 11:00] LABS: Free T4, Direct Thyroxine 1.18 ng/dL (0.78-2.19)
[2024-06-17 11:14] LABS: Thyroid Stimulating Hormone 0.921 uIU/mL (0.47-4.68)
== END ==
LOC: LAB 08:38
PROVIDERS: PCP Family Medicine; Referring Provider Family Medicine; Visit Provider Family Medicine
DX: E78.5 Hyperlipidemia, unspecified (principal); I25.10 Atherosclerotic heart disease of native coronary artery without angina pectoris; E11.9 Type 2 diabetes mellitus without complications; F31.9 Bipolar disorder, unspecified; R16.1 Splenomegaly, not elsewhere classified; E03.9 Hypothyroidism, unspecified; I10 Essential (primary) hypertension
CPT/HCPCS: 36415; 80053; 80061; 80178; 82043; 82570; 83036; 84439; 84443; 85027; 85610

== ENCOUNTER 2024-07-26 18:44 | Emergency (ER) | payer MEDICARE, SELFPAY ==
[2024-06-04 03:32] VITALS: BMI 34.0
[2024-07-26] VITALS (7 sets, daily range): BP systolic 152–172; BP diastolic 74–81; PULSE 47–53; RESP 15–21; TEMP 36.6; O2SAT 91–98; BMI 33.0
--- NOTE | 2024-07-26 20:40 | DI.CT.S_ITS ---
PROCEDURE: CT HEAD/BRAIN WO CON INDICATIONS: head strike 7 weeks ago; neuro changes x 10 days TECHNIQUE: Noncontrast 4.5 mm thick angled axial sections acquired from the foramen magnum to the vertex, with coronal and sagittal reformats. For radiation dose reduction, the following was used: automated exposure control, adjustment of mA and/or kV according to patient size. COMPARISON: [facility], CT, CT HEAD/BRAIN WO CON, 06/03/2024, 23:35. FINDINGS: Image quality: Diagnostic. CSF spaces: Basal cisterns are patent. There is a new subdural hematoma involving the right cerebral hemisphere measuring approximately 2.1 cm in thickness causing underlying effacement of the sulci and right lateral ventricle. No significant midline shift. There are hemorrhagic products of variable ages. Some acute hemorrhage layering along the right anterior falx. Brain: No parenchymal bleeds or mass lesions. There is cerebral volume loss, with resultant ventricular and sulcal prominence. There are periventricular and deep white matter chronic small vessel ischemic changes. There is intracranial internal carotid artery atherosclerosis. Skull and face: Calvarium and visualized facial bones appear intact, without suspicious lesions. Sinuses: Visualized sinuses and mastoids are clear. IMPRESSION: There is an age-indeterminate right subdural hematoma involving the right cerebral hemisphere measuring up to 2.1 cm in thickness causing underlying sulcal effacement and effacement of the right lateral ventricle. There are hemorrhagic products of variable ages including small amount of acute hemorrhage layering along the right anterior falx. No overlying calvarial fracture. Age related senescent changes and sequela of chronic small vessel ischemic disease. Findings were discussed with Dr. Leslie at 2130 hrs. Dictated by: Gilbert Spivey M.D. on 07/26/2024 at 21:16 Approved by: Gilbert Spivey M.D. on 07/26/2024 at 21:32
--- NOTE | 2024-07-26 21:08 | EKG_ITS ---
[address] [address] [address] [address] Test Date: 2024-07-26 Pat Name: Ab Negron Department: Room: Gender: Male Script Girl: : 1955 Requested By: Order Number: [id number] Reading MD: Yuriy Infante MD Measurements Intervals [place] Rate: 51 P: 19 LA: 204 QRS: 2 QRSD: 80 T: 31 QT: 416 QTc: 383 Interpretive Statements Sinus bradycardia Electronically Signed On 07-27-2024 8:45:46 PDT by Yuriy Infante MD
--- NOTE | 2024-07-26 21:10 | EKG_ITS ---
[address] [address] [address] [address] Test Date: 2024-07-26 Pat Name: Ab Negron Department: Room: Gender: Male Chicken Vaccinator: SP : 1955 Requested By: Order Number: [id number] Reading MD: Yuriy Infante MD Measurements Intervals [place] Rate: 50 P: 24 [place]: 204 QRS: 2 QRSD: 78 T: 32 QT: 426 QTc: 388 Interpretive Statements Sinus bradycardia Possible Inferior infarct , age undetermined Electronically Signed On 07-27-2024 8:45:48 PDT by Yuriy Infante MD
--- NOTE | 2024-07-26 21:24 | PC.NURSE ---
Pt has equal ornithology teacher and sensation/motor functions equal throughout. states that pt has had memory changes, at one point pt could not remember how to put on his shirt.
--- NOTE | 2024-07-26 21:31 | ED.NEUROSD ---
HPI - Neuro Symptoms/Deficit General Chief Complaint: Neuro Symptoms/Deficit Stated Complaint: recheck from 7 weeks ago, fell Time Seen by Provider: 07/26/24 20:37 Source: patient and family Mode of arrival: Ambulatory History of Present Illness HPI Narrative: 69-year-old gentleman with a history of coronary artery disease, prior stenting, hypothyroidism, bipolar disorder on lithium, chronic ITP presents with acute mental status changes happening approximately 10 days ago. He and his were in [place] in the 1st week he was normal with no concerns. Something shifted in the 2nd week of their trip where he was having significant headaches, worsening insomnia, significantly notable decrease in short memory, difficulty in simple tasks such as getting dressed. They have been back in town for approximately week and notices that those symptoms are all improving but still noticeable. Patient does note that he is still having headaches does not seem to be quite as bad. On Anticoagulants: No Related Data Home Medications ?Medication ?Instructions ?Recorded ?Confirmed NITROGLYCERIN (#NITROSTAT) 0.4 mg sublingual PRN PRN Chest 01/16/11 07/26/24 Pain ##0 ASPIRIN (Aspir-Low) 81 mg PO QDAY ##0 05/05/12 07/26/24 sildenafil 100 mg tablet (Viagra) 100 mg PO DAILY PRN Erectile 05/17/24 07/26/24 Dysfunction valsartan 320 mg tablet 320 mg PO DAILY 05/17/24 07/26/24 atorvastatin 40 mg tablet 40 mg PO DAILY 06/04/24 07/26/24 lithium carbonate 300 mg capsule 300 mg PO DAILY 06/04/24 07/26/24 amlodipine 10 mg tablet 10 mg PO DAILY 07/26/24 07/26/24 Previous Rx's ?Medication ?Instructions ?Recorded levothyroxine 100 mcg tablet 100 mcg PO DAILY #90 tabs 08/04/17 amlodipine 5 mg tablet 5 mg PO DAILY #30 tabs 03/25/18 Allergies Allergy/AdvReac Type Severity Reaction Status Date / Time No Known Drug Allergies Allergy Verified 06/23/24 09:41 Review of Systems Review of Systems Narrative: Pertinent positive and negative findings as per HPI Hematologic/Lymphatic On Anticoagulants: No Patient History Medical History Chronic ITP (idiopathic thrombocytopenic purpura) Thrombocytopenia (2011) Bipolar disorder (~1980) Diabetes mellitus (2010) Hyperlipidemia Hypertension CAD (coronary artery disease) (2010) Surgical History History of colonoscopy (2006) History of coronary artery stent placement (2010) History of angioplasty Family History Other CAD (coronary artery disease) Social History marital status: number of children: 3 household members: spouse lives independently: Yes Smoking Status: Never smoker alcohol intake: current substance use type: does not use Smoking Status: Never smoker tobacco type: vaping Alcohol type: wine Exam Initial Vital Signs Initial Vital Signs: Vital Signs Temperature 97.8 F 07/26/24 19:47 Pulse Rate 53 L 07/26/24 19:47 Respiratory Rate 15 07/26/24 19:47 Blood Pressure 172/81 H 07/26/24 19:47 Pulse Oximetry 97 07/26/24 19:47 Oxygen Delivery Method Room Air 07/26/24 19:47 General: Healthy appearing, in no acute distress. Able to give a complete and coherent history. Well-nourished well-developed HEENT: Moist mucous membranes, normal sclera with reactive pupils, Respiratory: Lungs are clear to auscultation, no wheezing no rales no rhonchi. Full and symmetrical air movement Cardiac: Regular rate and rhythm no murmurs no bruits Abdomen: Soft, nontender, no rebound or guarding, no flank pain Skin: Warm and dry, no rashes Neurologic: Grossly neurologically intact with no obvious asymmetries or abnormalities, oriented to person time and place. Extremities: No trauma, well perfused Psych: Cooperative, appropriate insight and affect, fluent speech Course Orders Ordered: ED Orders 07/26/24 20:40 CT head/brain wo con Stat Vital Signs Vital signs: Vital Signs - 8 hr 07/26/24 19:47 07/26/24 21:14 07/26/24 21:15 Temperature 97.8 F Pulse Rate 53 L 50 L Respiratory Rate 15 18 Blood Pressure 172/81 H 164/75 H Pulse Oximetry 97 91 Oxygen Delivery Method Room Air 07/26/24 21:15 Temperature Pulse Rate 49 L Respiratory Rate 18 Blood Pressure Pulse Oximetry 98 Oxygen Delivery Method Room Air MDM - Neuro Symptoms/Deficit Imaging Data CT scan - head: Radiologist's Impression: PROCEDURE: CT HEAD/BRAIN WO CON INDICATIONS: head strike 7 weeks ago; neuro changes x 10 days TECHNIQUE: Noncontrast 4.5 mm thick angled axial sections acquired from the foramen magnum to the vertex, with coronal and sagittal reformats. For radiation dose reduction, the following was used: automated exposure control, adjustment of mA and/or kV according to patient size. COMPARISON: [facility], CT, CT HEAD/BRAIN WO CON, 06/03/2024, 23:35. FINDINGS: Image quality: Diagnostic. CSF spaces: Basal cisterns are patent. There is a new subdural hematoma involving the right cerebral hemisphere measuring approximately 2.1 cm in thickness causing underlying effacement of the sulci and right lateral ventricle. No significant midline shift. There are hemorrhagic products of variable ages. Some acute hemorrhage layering along the right anterior falx. Brain: No parenchymal bleeds or mass lesions. There is cerebral volume loss, with resultant ventricular and sulcal prominence. There are periventricular and deep white matter chronic small vessel ischemic changes. There is intracranial internal carotid artery atherosclerosis. Skull and face: Calvarium and visualized facial bones appear intact, without suspicious lesions. Sinuses: Visualized sinuses and mastoids are clear. IMPRESSION: There is an age-indeterminate right subdural hematoma involving the right cerebral hemisphere measuring up to 2.1 cm in thickness causing underlying sulcal effacement and effacement of the right lateral ventricle. There are hemorrhagic products of variable ages including small amount of acute hemorrhage layering along the right anterior falx. No overlying calvarial fracture. Age related senescent changes and sequela of chronic small vessel ischemic disease. Findings were discussed with Dr. Leslie at 2130 hrs. Dictated by: Gilbert Spivey M.D. on 07/26/2024 at 21:16 MDM Narrative Medical decision making narrative: CC: Altered mental status Complicating co-morbidities: ITP, hypertension, relative bradycardia, Data collected from: patient, Medical records reviewed: Previous ER note after a fall on June 03 is reviewed Differential considered: Stroke intracranial hemorrhage, infection Exam documented above, pertinent findings include: Patient has a GCS of 15 and an NIH score of 0. Slightly bradycardic, speech is fluent but he is somewhat slow in answering questions and uses his to help with most communication. Lab Test results independently reviewed as above. Pertinent findings: CBC is notable only for platelets low at 90 Chemistries are reassuring Independently reviewed EKG: Sinus Rubén at a rate of 50, no acute ischemic changes Imaging studies independently reviewed: CT head There is an age-indeterminate right subdural hematoma involving the right cerebral hemisphere measuring up to 2.1 cm in thickness causing underlying sulcal effacement and effacement of the right lateral ventricle. There are hemorrhagic products of variable ages including small amount of acute hemorrhage layering along the right anterior falx. No overlying calvarial fracture. Consultations: [facility] consult, will page Neurosurgery for further review After discussion with Dr. Mcginnis, recommendation is to transfer the patient to [facility] ER for further evaluation and treatmen Discussion: 69-year-old gentleman with altered mental status for approximately 10 days no obvious inciting event or trauma. Eyes had a headache, immediately was having significant short-term memory loss and difficulty in processing such as figuring out the way to put on his clothes. He and his both note that he has gotten somewhat better, the headache is a bit better but still present. With symptoms still not completely resolve they came in for further evaluation. CT scan shows a right subdural hematoma that appears consistent and timing with the onset of his symptoms. Of concern is a mention of us ?small amount of acute hemorrhage layering along the right anterior falx, there is no shift midline appreciated Incidentally appreciated is relative bradycardia. He was seen in this emergency department on the 03 of June with similar findings. At that point his metoprolol was stopped. He continues on valsartan and amlodipine Patient will be transferred to [facility] Emergency Department for further consultation and treatment of his subacute subdural hematoma with acute mental status changes Discharge Plan Departure Patient Disposition: Xfer Acute [facility] Clinical Impression: Subacute subdural hematoma Prescriptions: No Action valsartan 320 mg tablet 320 mg PO DAILY sildenafil [Viagra] 100 mg tablet 100 mg PO DAILY PRN (Reason: Erectile Dysfunction) Rx Instructions: administer 30 minutes to 4 hours before activity NITROGLYCERIN (#NITROSTAT) 0.4 mg Sublingual PRN PRN (Reason: Chest Pain) Qty: 0 ASPIRIN (Aspir-Low) 81 mg PO QDAY Qty: 0 levothyroxine 100 mcg tablet 100 mcg PO DAILY Qty: 90 0RF amlodipine 5 mg tablet 5 mg PO DAILY Qty: 30 2RF atorvastatin 40 mg tablet 40 mg PO DAILY Rx Instructions: takes in a.m. lithium carbonate 300 mg capsule 300 mg PO DAILY Referrals: Mian Jain MD [Primary Care Provider, [facility]]
[2024-07-26 22:31] LABS: Add Manual Diff / Slide Review NO; Basophils Absolute Auto 0 /uL (0-100); Basophils Percent Auto 0.4 % (0-2); Eosinophils Absolute Auto 0 /uL (0-450); Eosinophils Percent Auto 0.8 % (2-4); Hematocrit 41.3 % (41-53); Hemoglobin 14.6 g/dL (13.5-17.5); Lymphocytes Absolute Auto 2600 /uL (1100-4500); Lymphocytes Percent Auto 50.2 % (25-40); Mean Corpuscular HGB Conc 35.3 % (30-36); Mean Corpuscular Hemoglobin 32.4 PG (26-34); Monocytes Absolute Auto 200 /uL (0-900); Monocytes Percent Auto 3.6 % (3-14); Neutrophils Absolute Auto 2300 /uL (1500-7000); Platelet Count 90 X10^3/uL (150-400); Red Blood Cell Count 4.49 X10^6/uL (4.5-5.9); Red Cell Distribution Width 13.4 % (11.6-14.8); White Blood Cell Count 5.1 X10^3/uL (4.5-11.0)
[2024-07-26 22:32] LABS: Alanine Aminotransferase 42 IU/L (<50); Albumin 5.2 g/dL (3.5-5.0); Albumin Globulin Ratio 1.9 (1.0-2.8); Alkaline Phosphatase 65 U/L (38-126); Aspartate Aminotransferase 67 IU/L (17-59); BUN Creatinine Ratio 19.8 (6-22); Bilirubin Total 0.9 mg/dL (0.2-1.3); Blood Urea Nitrogen 21 mg/dL (9-20); Calcium 9.5 mg/dL (8.4-10.2); Carbon Dioxide 29 mmol/L (22-32); Chloride 101 mmol/L (98-107); Estimated Glomerular Filt Rate > 60 mL/min (>60); Globulin 2.7 g/dL (1.7-4.1); Glucose 117 mg/dL (70-99); HEMOLYSIS 30 (0-50); Potassium 4.5 mmol/L (3.4-5.1); Sodium 138 mmol/L (137-145); Total Protein 7.9 g/dL (6.3-8.2)
[2024-07-27] VITALS: PULSE 52; RESP 17; O2SAT 97
[2024-07-27 00:01] VITALS: BP 147/81; PULSE 53; RESP 22; O2SAT 96
== END 2024-07-27 00:50 | disposition short-term general hospital (02) ==
PROVIDERS: Emergency Provider Emergency Medicine; PCP Family Medicine
DX: I62.02 Nontraumatic subacute subdural hemorrhage (principal); R00.1 Bradycardia, unspecified; R29.700 NIHSS score 0; R40.2412 Glasgow coma scale score 13-15, at arrival to emergency department
CPT/HCPCS: 70450; 80053; 85025; 93005; 93010; 99283; 99284

== ENCOUNTER → 2024-09-06 12:10 | Outpatient (CLI) | payer MEDICARE, SELFPAY ==
[2024-06-04 03:32] VITALS: BMI 34.0
== END ==
PROVIDERS: PCP Family Medicine; Visit Provider Chiropractor
DX: L03.011 Cellulitis of right finger (principal)
CPT/HCPCS: 87070; 87075; 87205

== ENCOUNTER → 2024-09-12 12:07 | Outpatient (CLI) | payer MEDICARE, SELFPAY ==
[2024-06-04 03:32] VITALS: BMI 34.0
--- NOTE | 2024-09-12 12:09 | DI.CT.S_ITS ---
PROCEDURE: CT HEAD/BRAIN WO CON INDICATIONS: right frontal SDH follow-up; s/p right enrico hole TECHNIQUE: Noncontrast 4.5 mm thick angled axial sections acquired from the foramen magnum to the vertex, with coronal and sagittal reformats. For radiation dose reduction, the following was used: automated exposure control, adjustment of mA and/or kV according to patient size. COMPARISON: [facility], CT, CT HEAD/BRAIN WO CON, 07/26/2024, 20:54. FINDINGS: Image quality: Diagnostic. CSF spaces: Basal cisterns are patent. The ventricles are symmetric in size and shape. Brain: There is a small amount of residual, resolving subdural hemorrhage on the right. The appearance is clearly improved compared to the 07/26/2024 examination. No intracranial mass effect. There is cerebral volume loss, with resultant ventricular and sulcal prominence. There are periventricular and deep white matter chronic small vessel ischemic changes. There is intracranial internal carotid artery atherosclerosis. Skull and face: Right-sided enrico holes are seen. Calvarium and visualized facial bones appear intact, without suspicious lesions. Sinuses: Visualized sinuses and mastoids are clear. IMPRESSION: Minimal, residual right-sided subdural hemorrhage. Dictated by: Alvaro Adkins M.D. on 09/12/2024 at 14:29 Approved by: Alvaro Adkins M.D. on 09/12/2024 at 14:30
== END ==
LOC: CT 12:08
PROVIDERS: PCP Family Medicine
DX: S06.5XAA Traumatic subdural hemorrhage with loss of consciousness status unknown, initial encounter (principal); Z98.890 Other specified postprocedural states
CPT/HCPCS: 70450

== ENCOUNTER → 2025-01-18 09:28 | Outpatient (CLI) | payer MEDICARE, SELFPAY ==
[2024-06-04 03:32] VITALS: BMI 34.0
[2025-01-18 10:14] LABS: Hematocrit 41.3 % (41-53); Hemoglobin 14.8 g/dL (13.5-17.5); Mean Corpuscular HGB Conc 35.7 % (30-36); Mean Corpuscular Hemoglobin 32.1 PG (26-34); Mean Corpuscular Volume 90.0 fL (80-100); Platelet Count 74 X10^3/uL (150-400)
[2025-01-18 10:21] LABS: Hemoglobin A1C% w Est Avg Glu 6.0 % (4.0-6.0)
[2025-01-18 10:40] LABS: Lithium 0.7 mmol/L (0.6-1.2)
[2025-01-18 10:42] LABS: Alanine Aminotransferase 24 IU/L (<50); Albumin 4.9 g/dL (3.5-5.0); Albumin Globulin Ratio 2.0 (1.0-2.8); Alkaline Phosphatase 79 U/L (38-126); Blood Urea Nitrogen 20 mg/dL (9-20); Calcium 9.3 mg/dL (8.4-10.2); Carbon Dioxide 25 mmol/L (22-32); Chloride 106 mmol/L (98-107); Cholesterol 101 mg/dL (140-199); Estimated Glomerular Filt Rate > 60 mL/min (>60); Globulin 2.5 g/dL (1.7-4.1); Glucose 142 mg/dL (70-99); HDL Cholesterol 24 mg/dL (40-60); HEMOLYSIS < 15 (0-50); Potassium 5.1 mmol/L (3.4-5.1); Sodium 140 mmol/L (137-145); Total Protein 7.4 g/dL (6.3-8.2); Triglycerides 174 mg/dL (35-150)
[2025-01-18 11:11] LABS: TSH w/ Reflex to FT4 1.29 uIU/mL (0.47-4.68)
[2025-01-18 17:15] LABS: Microalbumi Creatinin Ratio Ur 8.0 ug/mg CR (<30)
== END ==
PROVIDERS: PCP Family Medicine; Referring Provider Family Medicine; Visit Provider Family Medicine
DX: E11.9 Type 2 diabetes mellitus without complications (principal); I25.10 Atherosclerotic heart disease of native coronary artery without angina pectoris; I10 Essential (primary) hypertension; E78.5 Hyperlipidemia, unspecified; Z79.899 Other long term (current) drug therapy; F31.78 Bipolar disorder, in full remission, most recent episode mixed
CPT/HCPCS: 36415; 80053; 80061; 80178; 82043; 82310; 82570; 83036; 83970; 84443; 85027